=== PATIENT | female | born 1935 | race American Indian/Alaskan Native ===

== ENCOUNTER 2016-06-17 05:05 | Inpatient (IN) | payer OTHER, BC, MEDICARE ==
[~2016-06-17] VITALS: Ht 160 cm; Wt 80.1 kg
--- NOTE | 2016-06-17 05:11 | ED CARDIAC/CP/PALPITATIONS ---
History of Present Illness General Chief Complaint: Chest Pain Stated Complaint: TACHYCARDIA? Source: patient Exam Limitations: no limitations Vital Signs & Intake/Output Vital Signs & Intake/Output Vital Signs Date Time Temp Pulse Resp B/P Pulse O2 O2 Flow FiO2 Ox Delivery Rate 06/17 617 Room Air 06/17 0617 97.6 92 20 182/86 97 Room Air 06/17 0555 97.5 147 18 144/77 98 Room Air 06/17 0551 147 144/77 Allergies Coded Allergies: Sulfa (Sulfonamide Antibiotics) (UNKNOWN 06/17/16) oxycodone (UNKNOWN 06/17/16) pseudoephedrine (UNKNOWN 06/17/16) Triage Nurses Notes Reviewed? yes Onset: Abrupt Duration: hour(s): Timing: single episode today Quality/Severity: moderate Location: central Radiation: no radiation Activities at Onset: "My son just ." Prior Chest Pain/Card Workup: prior history of afib Modifying Factors: Improves With: rest. Associated Symptoms: palpitations HPI: 81 yo woman, h/o afib, presents with grief and tachycardia in the context of hearing the news that her son has in the ED at [facility]. At his bedside, he notes that she feels palpitations, a rapid heart rate, and is dizzy. She notes slight chest pressure, slight shortness of breath. She is otherwise well. Past History Travel History Traveled to [place] past 21 day No Medical History Any Pertinent Medical History? see below for history Cardiovascular: AFIB Pneumonia Vaccine: 01/10/07 Influenza Vaccine: 12/28/08 Surgical History Surgical History: none Psychosocial History Who do you live with Son Services at Home None What is your primary language Sinhala Family History Hx Contributory? No Review of Systems Review of Systems Constitutional: Reports: no symptoms. EENTM: Reports: no symptoms. Respiratory: Reports: no symptoms. Cardiovascular: Reports: no symptoms. GI: Reports: no symptoms. Genitourinary: Reports: no symptoms. Musculoskeletal: Reports: no symptoms. Skin: Reports: no symptoms. Neurological/Psychological: Reports: no symptoms. Hematologic/Endocrine: Reports: no symptoms. Immunologic/Allergic: Reports: no symptoms. All Other Systems: Reviewed and Negative Physical Exam Physical Exam General Appearance: well developed/nourished, mild distress, moderate distress Head: atraumatic, normal appearance Eyes: Bilateral: normal appearance. Ears, Nose, Throat: normal pharynx, normal ENT inspection Neck: normal inspection, supple, full range of motion Respiratory: normal breath sounds, chest non-tender, no respiratory distress Cardiovascular: irregularly irregular, tachycardic Gastrointestinal: normal bowel sounds, soft, non-tender, no organomegaly Rectal: normal rectal tone, heme negative stool Back: normal inspection Extremities: normal inspection Neurologic/Psych: no motor/sensory deficits, awake, alert, oriented x 3 Skin: intact, normal color, warm/dry Core Measures ACS in differential dx? No Severe Sepsis Present: No Septic Shock Present: No Progress Differential Diagnosis: AMI, atrial fibrillation, unstable angina, grief reaction Plan of Care: Orders Procedure Date/time Status Nothing by Mouth 06/17 B Active PARTIAL THROMBOPLASTIN TIME 06/17 1221 Active Patient Data 06/17 07 Active Saline Lock 06/17 06 Active Misc Message 06/17 06 Active ED Holding Orders 06/17 06 Active Admit to inpatient 06/17 0656 Active Vital Signs 06/17 0656 Active Code Status 06/17 06 Active PARTIAL THROMBOPLASTIN TIME 06/17 0517 Complete PROTHROMBIN TIME 06/17 0517 Complete TROPONIN LEVEL 06/17 0509 Complete MAGNESIUM 06/17 0509 Complete COMPREHENSIVE METABOLIC PANEL 06/17 0509 Complete CBC WITHOUT DIFFERENTIAL 06/17 0509 Complete EKG 06/17 0507 Active Laboratory Tests 06/17/16 0524: Anion Gap 12, Estimated GFR 31 L, BUN/Creatinine Ratio 24.4, Glucose 176 H, Calcium 9.8, Magnesium 1.6, Total Bilirubin 0.7, AST 20, ALT 34, Alkaline Phosphatase 110, Troponin I < 0.01, Total Protein 6.9, Albumin 4.1, Globulin 2.8 , Albumin/Globulin Ratio 1.5, PT 10.0, INR 0.95, APTT 31, CBC w Diff NO MAN DIFF REQ, RBC 4.44, MCV 89.0, MCH 29.4, RDW 13.6, MPV 9.4, Gran % 59.4, Lymphocytes % 28.8, Monocytes % 5.9, Eosinophils % 5.2 H, Basophils % 0.7, Absolute Granulocytes 2.8, Absolute Lymphocytes 1.4, Absolute Monocytes 0.3, Absolute Eosinophils 0.2, Absolute Basophils 0, PUBS MCHC 33.0 Diagnostic Imaging: Viewed by Me: Radiology Read. Discussed w/RAD: Radiology Read. CXR Impression: no acute abnormality, no infiltrates, normal size heart, normal mediastinum Initial ED EKG: AFIB, AFIB WITH RVR Comments: PATIENT: AUBREE WHITE PRESENT AGE: 81 PATIENT ACCOUNT NO: [id number] : 35 LOCATION: [facility] ORDERING PHYSICIAN: EFRAÍN VILLANUEVA MD SERVICE DATE: 06/17/16 EXAM TYPE: RAD - XRY-PORTABLE CHEST XRAY EXAMINATION: XR PORTABLE CHEST CLINICAL INFORMATION: Chest pain. COMPARISON: Chest x-ray 08/26/2010 TECHNIQUE: Portable AP portable view of the chest was obtained. 5:45 AM FINDINGS: Lungs are clear. No pulmonary vascular congestion. No pleural effusion or pneumothorax. Heart size is prominent. Surgical clips in right axilla. Compared to prior chest x-ray there is no change IMPRESSION: No acute abnormality of the chest. DICTATED BY: ALEXANDR MARC MD DATE/TIME DICTATED:06/17/16602 O AND M SUPERVISOR:TYLER DATE/TIME TRANSCRIBED:06/17/16602 CONFIDENTIAL, DO NOT COPY WITHOUT APPROPRIATE AUTHORIZATION. <Electronically signed in Other Vendor System> SIGNED BY: ALEXANDR MARC MD 06/17/16607 Departure Departure Disposition: STILL A PATIENT Condition: Stable Clinical Impression Primary Impression: Atrial fibrillation with rapid ventricular response Secondary Impressions: Grief Referrals: DUONG ALCOCER,YAMILE Keller (PCP/Family) Departure Forms: Customer Survey General Discharge Information Admission Note Spoke With: KOLTON ALCOCER,JOSE CRUZ Documentation of Exam: Documentation of any treatments & extenuating circumstances including Concerns Regarding Discharge (functional status, medication knowledge or non-compliance, living conditions, etc.) that warrant an admission rather than observation: PT WITH AFIB WITH RAPID VENTRICULAR RESPONSE... MERITS DILT GTT FOR RATE CONTROL. DISCUSSED WITH DR. LIZARRAGA WHO WILL CONSULT. Critical Care Note Critical Care Note Critical Care Time: 30-74 min
--- NOTE | 2016-06-17 05:37 | NUR ---
PT TO TRIAGE C/O HEART RACING S/P FAMILY MEMBER PATIENT. PT HAS HX AFIB. AFIB 140'S-150'S ON MONITOR. PT DENIES ANY CHEST PAIN OR SOB.
[2016-06-17 05:41] LABS: ABSOLUTE BASOPHIL COUNT 0 /CUMM (0.0-0.2); ABSOLUTE EOSINOPHIL COUNT 0.2 /CUMM (0.0-0.7); ABSOLUTE GRANULOCYTE CT 2.8 /CUMM (1.4-6.5); ABSOLUTE LYMPH COUNT 1.4 /CUMM (1.2-3.4); ABSOLUTE MONOCYTE COUNT 0.3 /CUMM (0.10-0.60); BASOPHIL % 0.7 % (0.0-2.0); EOSINOPHIL % 5.2 % (0-5); GRANULOCYTE % 59.4 % (42.2-75.2); HEMATOCRIT 39.5 % (37-47); MEAN CORPUSCULAR HGB 29.4 PG (27.0-31.0); MEAN PLATELET VOLUME 9.4 FL (7.4-10.4); PLATELET COUNT 110 /CUMM (130-400); RBC DISTRIBUTION WIDTH 13.6 % (11.5-14.5); RED BLOOD CELL CT 4.44 /CUMM (4.20-5.40); WHITE BLOOD CELL COUNT 4.8 /CUMM (4.8-10.8)
[2016-06-17 05:53] LABS: PTT 31 SEC (25-37)
--- NOTE | 2016-06-17 06:08 | RADIOLOGY REPORT ---
EXAMINATION: XR PORTABLE CHEST CLINICAL INFORMATION: Chest pain. COMPARISON: Chest x-ray 08/26/2010 TECHNIQUE: Portable AP portable view of the chest was obtained. 5:45 AM FINDINGS: Lungs are clear. No pulmonary vascular congestion. No pleural effusion or pneumothorax. Heart size is prominent. Surgical clips in right axilla. Compared to prior chest x-ray there is no change IMPRESSION: No acute abnormality of the chest.
--- NOTE | 2016-06-17 06:21 | NUR ---
RENATO CARABALLO, PERFORMED BY THIS RN AND
--- NOTE | 2016-06-17 06:21 | NUR ---
CARDIZEM AND HEPARIN DRIPS INITIATED BY THIS RN AND BALDO WEINBERG.
--- NOTE | 2016-06-17 07:39 | NUR ---
REPORT RECEIVED. PT AWAKE,ALERT,DENIES PAIN,SOB. CARDIZEM DRIP RUNNING AT 10 ML/HR. HEPARIN DRIP RUNNING AT 26 ML/HR. MONITOR SR. 02 SAT 95% RA.
[2016-06-17] MEDS ORDERED: LISINOPRIL20 M1 PO (07:52)
[2016-06-17] MEDS ORDERED: TERAZOSIN HCL1 M1 PO (07:53)
[2016-06-17] MEDS ORDERED: AMLODIPINE BES2.5 M1 PO (07:54)
--- NOTE | 2016-06-17 07:54 | NUR ---
PT TO ROOM 178
[2016-06-17] MEDS ORDERED: PIOGLITAZONE HC30 M1 PO (07:55)
[2016-06-17] MEDS ORDERED: GLUCOTROL XL5 M1 PO (07:56)
[2016-06-17] MEDS ORDERED: TRAMADOL HCL50 M1 PO (07:57)
--- NOTE | 2016-06-17 08:43 | NUR ---
REPORT GIVEN TO CONSUELO BLAND ON [facility].
[2016-06-17] MEDS ORDERED: ASPIRIN81 M4 PO (08:46)
--- NOTE | 2016-06-17 08:56 | NUR ---
RESTRICTED EXTREMITY BRACELET APPLIED TO RT ARM-STATES HX RT BREAST SURGERY.
--- NOTE | 2016-06-17 09:20 | NUR ---
TRANSFERRED TO ROOM 178-REMAIN IN SR.
--- NOTE | 2016-06-17 09:22 | History & Physical ---
DANNIE STOKES 06/17/16 0904: General Information and HPI Exam Limitations: no limitations History of Present Illness: She is 81-year-old woman with past medical history Significant for type 2 diabetes mellitus, hypertension, dyslipidemia, right-sided breast cancer, s/p lumpectomy, node dissection and subsequent chemotherapy, hypothyroidism, thyroid nodule, paroxysmal A. fib not on anticoagulation, intraventricular conduction delay not on antiarrhythmic therapy, history of kidney stones and chronic back pain presented to ER with complaint of heart pounding after she got a news that his son has this morning. At home she checked her blood pressures that was 200 systolic and her heart rate was 104. She was also feeling dizzy. She took lisinopril 40 mg in the morning. Currently she denies any chest pain or discomfort, palpitations, difficulty breathing. She is in grief and crying intermittently. Allergies/Medications Allergies: Coded Allergies: Sulfa (Sulfonamide Antibiotics) (UNKNOWN 06/17/16) oxycodone (UNKNOWN 06/17/16) pseudoephedrine (UNKNOWN 06/17/16) Home Med list Amlodipine Besylate 2.5 MG TABLET 1 TAB PO DAILY HIGH BLOOD PRESSURE ( Reported) Aspirin (Aspirin*) 81 MG TAB.CHEW 1 TAB PO DAILY HEART (Reported) Glipizide (Glucotrol XL) 5 MG TAB.ER.24 1 TAB PO DAILY DIABETES (Reported) Lisinopril 20 MG TABLET 1 TAB PO BID HTN (Reported) Pioglitazone HCl 30 MG TABLET 1 TAB PO DAILY DIABETES (Reported) Terazosin HCl 1 MG CAPSULE 1 CAP PO QPM HEADACHE (Reported) Tramadol HCl 50 MG TABLET 1 TAB PO DAILY PRN BACK PAIN (Reported) Compliance With Home Meds: GOOD Past History Travel History Traveled to [place] past 21 day No Medical History Cardiovascular: AFIB, hypertension, hyperlipidemia Musculoskeletal: chronic back pain Endocrine: diabetes CLINICAL ADMINISTRATIVE COORDINATOR/Reproductive: history of breast cancer status post lumpectomy and chemotherapy Pneumonia Vaccine: 01/10/07 Influenza Vaccine: 12/28/08 Surgical History Surgical History: appendectomy, cholecystectomy, hysterectomy Past Family/Social History Family History Relations & Conditions if any BROTHER (Myocardial infarction at age 48). SISTER (Hemorrhagic stroke). MOTHER (Diabetes mellitus). FATHER (Gastric cancer). Psychosocial History Services at Home: None Smoking Status: Never Smoked ETOH Use: denies use Illicit Drug Use: denies illicit drug use Functional Ability ADLs Independent: dressing, eating, toileting, bathing. Ambulation: independent IADLs Independent: shopping, housework, finances, food prep, telephone, medication admin. Needs Assist: transportation. Review of Systems Review of Systems Constitutional: Reports: see HPI. Exam & Diagnostic Data Last 24 Hrs of Vital Signs/I&O Vital Signs Date Time Temp Pulse Resp B/P Pulse O2 O2 Flow FiO2 Ox Delivery Rate 06/17 0744 96.0 75 18 119/57 95 Room Air 06/17 0618 Room Air 06/17 0617 97.6 92 20 182/86 97 Room Air 06/17 0555 97.5 147 18 144/77 98 Room Air 06/17 0551 147 144/77 Intake & Output 06/17 1600 06/17 0800 06/17 0000 Intake Total 100 Output Total Balance 100 Intake, IV 100 Patient 181 lb Weight Physical Exam General Appearance appears in Grief Skin No Rashes HEENT Mucous Membr. moist/pink Neck Supple Cardiovascular Regular Rate, No Murmurs Lungs Clear to Auscultation Abdomen Normal Bowel Sounds, Soft, No Tenderness Neurological Normal Speech, Strength at 5/5 X4 Ext, Sensation Intact, Cranial Nerves 3-12 NL Extremities No Edema, Normal Pulses Last 24 Hrs of Labs/Don: Laboratory Tests 06/17/16 0524: Anion Gap 12, Estimated GFR 31 L, BUN/Creatinine Ratio 24.4, Glucose 176 H, Calcium 9.8, Magnesium 1.6, Total Bilirubin 0.7, AST 20, ALT 34, Alkaline Phosphatase 110, Troponin I < 0.01, Total Protein 6.9, Albumin 4.1, Globulin 2.8 , Albumin/Globulin Ratio 1.5, TSH Pending, Free T4 Pending, PT 10.0, INR 0.95, APTT 31, CBC w Diff NO MAN DIFF REQ, RBC 4.44, MCV 89.0, MCH 29.4, RDW 13.6, MPV 9.4, Gran % 59.4, Lymphocytes % 28.8, Monocytes % 5.9, Eosinophils % 5.2 H, Basophils % 0.7, Absolute Granulocytes 2.8, Absolute Lymphocytes 1.4, Absolute Monocytes 0.3, Absolute Eosinophils 0.2, Absolute Basophils 0, PUBS MCHC 33.0 Diagnostic Data EKG Results Atrial fibrillation with heart rate [address]-T wave changes CXR Results No acute abnormality of the chest Assessment/Plan Assessment: She is 81-year-old woman with past medical history Significant for type 2 diabetes mellitus, hypertension, dyslipidemia, right-sided breast cancer, s/p lumpectomy, node dissection and subsequent chemotherapy, hypothyroidism, thyroid nodule, paroxysmal A. fib not on anticoagulation, intraventricular conduction delay rather on antiarrhythmic therapy, history of kidney stones and chronic back pain is going to be admitted on telemetry floor for atrial fibrillation with rapid ventricular rate. ED course: When she came to ER her temperature was 97.5, pulse 147, respiratory rate 18, blood pressure 144/77 and oxygen saturation 98% on room air. Pertinent labs are platelet count 110, creatinine 1.6 (baseline), glucose 176, magnesium 1.6. Troponins negative. EKG showed atrial fibrillation with heart rate 129. Chest x-ray did not show any abnormality. In ER she was given Ativan 1 mg IV 1 , aspirin 325 mg by mouth 1, Cardizem 10 mg IV 1 and she was started on Cardizem drip and heparin drip. She was stool guaiac negative. Patient is going to be admitted for chronic paroxysmal Atrial fibrillation with rapid ventricular rate. Patient has history of paroxysmal A. fib. Not on any anticoagulation. Last echocardiogram was done inpatient was in 08/2010 showed stage II diastolic dysfunction with LV ejection fraction >55%. She is diabetic and hypertensive. Her age is 81. CHADS2 score is 4 so she has 8.5% risk of thromboembolic event per year. We will monitor vitals closely. Taper off Cardizem drip according to heartrate. Cardio consult. We will check another set of troponin and EKG after 8 hours. We'll check thyroid functions. Replete magnesium. Will check electrolytes daily and replete accordingly. Echocardiogram. Her platelet count is 110 so we will closely monitor platelet count 5 on IV heparin drip. Will follow further cardiac recommendations. Diabetic diet. Pain management pathway. Patient is on heparin drip. Full code As Ranked By This Provider Problem List: 1. Atrial fibrillation with rapid ventricular response Core Measures/Miscellaneous Acute Coronary Syndrome ACS Diagnosis: No Cerebrovascular Accident CVA/TIA Diagnosis: No Congestive Heart Failure CHF Diagnosis: No Venous Thromboembolism VTE Risk Factors: Acute medical illness, Age > 40 No [facility] VTE prophylaxis d/t: No contraindications No VTE Pharm Prophylaxis d/t: No contraindications VTE Diagnosis: No VTE Type: NONE VTE Confirmed by (Test): NONE Severe Sepsis Severe Sepsis Present: No Septic Shock Septic Shock Present: No Miscellaneous Documentation Attending Case Discussed With: JOSE CRUZ HI MD Primary Care Physician: YAMILE WATTERS MD Patient sees these Specialists Dr. Davida Thacker MD Level of Patient Care: Telemetry Consults Needed: Consulting Specialty: Cardiology JOSE CRUZ HI MD 06/17/16 1158: Attending MD Review Statement Attending Statement Attending MD Statement: examined this patient, discuss w/resident/PA/STRIPPER SHOVEL OPERATOR, agreed w/resident/PA/STRIPPER SHOVEL OPERATOR, discussed with family, reviewed EMR data (avail), discussed with nursing, reviewed images, amended to note Attending Assessment/Plan: 81 y/o F with pmh sig for type 2 diabetes mellitus, hypertension, dyslipidemia, right-sided breast cancer, s/p lumpectomy, node dissection and subsequent chemotherapy, hypothyroidism, thyroid nodule, paroxysmal A. fib not on anticoagulation, intraventricular conduction delay not on antiarrhythmic therapy , history of kidney stones and chronic back pain, who presented to the emergency room after she found that her son has . Patient claims that when she heard the shocking news she started to feel that her heart was pounding. She checked her blood pressure which was in 200s systolic and her heart rate was around 130. She drove herself to the emergency room. In the emergency room she was found to be in rapid atrial fibrillation. Patient claims that her son had some heart issues and he was found in the house but then brought to the emergency room CPR was initiated. Unfortunately he could not be revived. Currently patient denies any further pounding and her heart rate is much better controlled while on Cardizem drip which was started in the emergency room. She was also started on IV heparin. She also mentioned that about 3 weeks ago she had concussion injury. She was fixing something and wanted off the car fell on her head. Since then she has been having symptoms off nausea, vomiting as well as dizziness. She also has been developing headaches and was still complaining of headache when I saw her. Denies any weakness in any part of the body. Denies any speech difficulty or gait disturbances. Vital Signs Date Time Temp Pulse Resp B/P Pulse O2 O2 Flow FiO2 Ox Delivery Rate 06/18 743 96.0 75 18 119/57 95 Room Air 06/17 0618 Room Air 06/17 616 97.6 92 20 182/86 97 Room Air 06/17 0555 97.5 147 18 144/77 98 Room Air 06/17 0551 147 144/77 on exam; aox3, nad, looks very sad and cryful. cv; s1, s2, irregular. resp; mild b/l basal crackles. abd; soft, nt, bs+ ext: 1+ edema Laboratory Tests 06/18 523 Chemistry Sodium (137 - 145 mmol/L) 137 Potassium (3.5 - 5.1 mmol/L) 4.3 Chloride (98 - 107 mmol/L) 103 Carbon Dioxide (22 - 30 mmol/L) 22 Anion Gap (5 - 16) 12 BUN (7 - 17 mg/dL) 39 H Creatinine (0.5 - 1.0 mg/dL) 1.6 H Estimated GFR (>60 ml/min) 31 L BUN/Creatinine Ratio (7 - 25 %) 24.4 Glucose (65 - 99 mg/dL) 176 H Calcium (8.4 - 10.2 mg/dL) 9.8 Magnesium (1.6 - 2.3 mg/dL) 1.6 Total Bilirubin (0.2 - 1.3 mg/dL) 0.7 AST (14 - 36 U/L) 20 ALT (9 - 52 U/L) 34 Alkaline Phosphatase (<127 U/L) 110 Troponin I (< 0.11 ng/ml) < 0.01 Total Protein (6.3 - 8.2 g/dL) 6.9 Albumin (3.5 - 5.0 g/dL) 4.1 Globulin (1.9 - 4.2 gm/dL) 2.8 Albumin/Globulin Ratio (1.1 - 2.2 %) 1.5 TSH (0.270 - 4.200 uIU/mL) 3.220 Free T4 (0.85 - 1.93 ng/dL) 1.36 Coagulation PT (9.4 - 12.5 SEC) 10.0 INR (0.90 - 1.19) 0.95 APTT (25 - 37 SEC) 31 Hematology CBC w Diff NO MAN DIFF REQ WBC (4.8 - 10.8 /CUMM) 4.8 RBC (4.20 - 5.40 /CUMM) 4.44 Hgb (12.0 - 16.0 G/DL) 13.1 Hct (37 - 47 %) 39.5 MCV (81.0 - 99.0 FL) 89.0 MCH (27.0 - 31.0 PG) 29.4 RDW (11.5 - 14.5 %) 13.6 Plt Count (130 - 400 /CUMM) 110 L MPV (7.4 - 10.4 FL) 9.4 Gran % (42.2 - 75.2 %) 59.4 Lymphocytes % (20.5 - 51.1 %) 28.8 Monocytes % (1.7 - 9.3 %) 5.9 Eosinophils % (0 - 5 %) 5.2 H Basophils % (0.0 - 2.0 %) 0.7 Absolute Granulocytes (1.4 - 6.5 /CUMM) 2.8 Absolute Lymphocytes (1.2 - 3.4 /CUMM) 1.4 Absolute Monocytes (0.10 - 0.60 /CUMM) 0.3 Absolute Eosinophils (0.0 - 0.7 /CUMM) 0.2 Absolute Basophils (0.0 - 0.2 /CUMM) 0 PUBS MCHC (33.0 - 37.0 G/DL) 33.0 A/P; 81 y/o F with pmh sig for type 2 diabetes mellitus, hypertension, dyslipidemia, right-sided breast cancer, s/p lumpectomy, node dissection and subsequent chemotherapy, hypothyroidism, thyroid nodule, paroxysmal A. fib not on anticoagulation, intraventricular conduction delay not on antiarrhythmic therapy, history of kidney stones and chronic back pain, admitted with atrial fibrillation with rapid ventricular response. This was likely triggered by the sad news of her son's . Patient is admitted to telemetry. Currently she is started on IV Cardizem and IV heparin in the emergency room which has been continued. IV Cardizem will be tapered according to her heart rate. Once her heart rate is better controlled she will likely be switched to oral Cardizem. Please check echocardiogram. Please check CT of the head to make sure there is no evidence of any bleed secondary to patient providing history of concussion injury and is still having a headache. Also the fact that she has been started on IV heparin. We'll continue the rest of her home medications. For diabetes management we can use sliding scale insulin. Her troponins will be trended. She has thrombocytopenia therefore I would recommend repeating a CBC later today to make sure that heparin has not further dropped the platelet counts. DVT px: IV heparin. Patient is a full code. Discussed with patient's daughter at bedside at length
--- NOTE | 2016-06-17 12:12 | Admission Certification ---
Admission Certification Certification Statement - As attending physician, I certify that at the time of - admission, based on clinical presentation, severity of - symptoms, need for further diagnostic testing and - therapeutic interventions, and risk of adverse outcomes - without in-hospital treatment, in my clinical assessment, - this patient requires an acute hospital stay for a minimum - of two nights or longer. I have also considered psychsocial - factors such as support system, advanced age, financial - issues, cognitive issues, and failed out-patient treatments, - past re-admission history, safety of patient, and lack of - compliance as applicable. Specific rationale supporting this admission is: Patient admitted with rapid atrial fibrillation. Needs medications to control the heart rate as well as cardiology evaluation.
--- NOTE | 2016-06-17 14:26 | CT SCAN REPORT ---
EXAMINATION: CT HEAD WITHOUT CONTRAST CLINICAL INFORMATION: Headache, status post fall. Patient is an anticoagulation. COMPARISON: None TECHNIQUE: Contiguous axial imaging was performed from the skull base to vertex without intravenous administration of contrast. DLP: 529.16 mGy-cm FINDINGS: There is no evidence of acute intracranial hemorrhage or territorial infarction. No abnormal mass effect or midline shift is seen. Dempsey to white matter differentiation is well preserved. No extra-axial fluid collections are identified. The ventricles are normal in size. There is no abnormal attenuation within the brain parenchyma. A cluster of sub-5 mm calcifications are noted within the folia of right cerebellar hemisphere, of uncertain etiology, of doubtful clinical significance. The osseous structures and soft tissues are normal. The mastoid air cells and visualized portions of the paranasal sinuses are well aerated. IMPRESSION: No acute intracranial pathology. Specifically, no acute intracranial hemorrhage is present.
[2016-06-17 14:36] LABS: ABSOLUTE BASOPHIL COUNT 0 /CUMM (0.0-0.2); ABSOLUTE EOSINOPHIL COUNT 0.2 /CUMM (0.0-0.7); ABSOLUTE GRANULOCYTE CT 3.2 /CUMM (1.4-6.5); ABSOLUTE LYMPH COUNT 1.2 /CUMM (1.2-3.4); ABSOLUTE MONOCYTE COUNT 0.3 /CUMM (0.10-0.60); BASOPHIL % 0.3 % (0.0-2.0); EOSINOPHIL % 4.2 % (0-5); GRANULOCYTE % 64.8 % (42.2-75.2); HEMATOCRIT 37.1 % (37-47); MEAN CORPUSCULAR HGB 29.4 PG (27.0-31.0); MEAN CORPUSCULAR HGB CONC 33.2 G/DL (33.0-37.0); MEAN CORPUSCULAR VOLUME 88.6 FL (81.0-99.0); MEAN PLATELET VOLUME 9.9 FL (7.4-10.4); PLATELET COUNT 121 /CUMM (130-400); RBC DISTRIBUTION WIDTH 13.4 % (11.5-14.5); RED BLOOD CELL CT 4.18 /CUMM (4.20-5.40); WHITE BLOOD CELL COUNT 4.9 /CUMM (4.8-10.8)
[2016-06-17 14:46] LABS: PTT 96 SEC (25-37)
[2016-06-17 16:20] VITALS: BP 108/54
--- NOTE | 2016-06-17 19:37 | Cons- Cardiology ---
General Information and HPI Consulting Request Date of Consult: 06/17/16 Requested By: JOSE CRUZ HI MD Reason for Consult: Atrial fibrillation with rapid ventricular response. Source of Information: patient, old records Exam Limitations: no limitations History of Present Illness: Mrs. Radha Fatima is an 81-year-old female with a history of diabetes mellitus, hypertension, dyslipidemia, breast carcinoma (status post right lumpectomy and subsequent chemotherapy), previous chest pain syndrome with negative evaluation in the past, intraventricular conduction delay (IVCD), paroxysmal atrial fibrillation/flutter previously on propafenone/diltiazem but had to be stopped secondary to marked bradycardia who presented after learning that her son succumbed to sudden cardiac . Her last echocardiogram was performed on 08/28/2010 and revealed a normal-sized left ventricle with mild concentric left ventricular hypertrophy, no regional wall motion abnormalities, and a normal ejection fraction estimated at greater than 55%, normal right ventricular size and function, normal atrial size, some age-related valvular changes, no pericardial effusion, and a normal size aortic root. The Doppler portion of the study revealed no evidence of hemodynamically significant aortic stenosis, mild to moderate aortic, mild mitral, mild tricuspid regurgitation, mild pulmonary hypertension (estimated PA systolic pressure 39 mmHg) and a pseudo-normal left ventricular inflow pattern consistent with stage 2 diastolic dysfunction. Her last imaging stress test was performed on 05/15/2012 and revealed no evidence of reversible ischemia. Allergies/Medications Allergies: Coded Allergies: Sulfa (Sulfonamide Antibiotics) (UNKNOWN 06/17/16) oxycodone (UNKNOWN 06/17/16) pseudoephedrine (UNKNOWN 06/17/16) Home Med List: Amlodipine Besylate 2.5 MG TABLET 1 TAB PO DAILY HIGH BLOOD PRESSURE ( Reported) Aspirin (Aspirin*) 81 MG TAB.CHEW 1 TAB PO DAILY HEART (Reported) Glipizide (Glucotrol XL) 5 MG TAB.ER.24 1 TAB PO DAILY DIABETES (Reported) Lisinopril 20 MG TABLET 1 TAB PO BID HTN (Reported) Pioglitazone HCl 30 MG TABLET 1 TAB PO DAILY DIABETES (Reported) Terazosin HCl 1 MG CAPSULE 1 CAP PO QPM HEADACHE (Reported) Tramadol HCl 50 MG TABLET 1 TAB PO DAILY PRN BACK PAIN (Reported) Review of Systems Review of Systems: A 14 point system review was obtained and was noncontributory, other than as above. 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 SISTER (Hemorrhagic stroke). MOTHER (Diabetes mellitus). FATHER (Gastric cancer). Psychosocial History Where Do You Live? Home Services at Home: None Smoking Status: Never Smoked ETOH Use: denies use Illicit Drug Use: denies illicit drug use Functional Ability ADLs Independent: dressing, eating, toileting, bathing. Ambulation: independent IADLs Independent: shopping, housework, finances, food prep, telephone, medication admin. Needs Assist: transportation. Exam & Diagnostic Data Vital Signs and I&O Vital Signs Date Time Temp Pulse Resp B/P Pulse O2 O2 Flow FiO2 Ox Delivery Rate 06/17 1620 98.2 57 20 108/54 95 Room Air / 0744 96.0 75 18 119/57 95 Room Air 06/17 0618 Room Air / 0617 97.6 92 20 182/86 97 Room Air 06/17 0555 97.5 147 18 144/77 98 Room Air /08 0551 147 144/77 Intake & Output 06/17 1600 08 0800 /08 0000 06/16 1600 06/16 0800 06/16 0000 Intake Total 848 100 Output Total Balance 848 100 Intake, IV 248 100 Intake, Oral 600 Patient 181 lb 181 lb Weight Physical Exam: Well-developed, overweight elderly female in no acute distress. Vital signs: See above. HEENT: Normocephalic, atraumatic, EOMI, 70 dry mucous membranes. Neck: No JVD, no bruits. Lungs: Decreased breath sounds bilaterally otherwise clear. Heart: S1, S2 with a grade 1-2/6 systolic murmur. No gallop or rub appreciated. Extremities: No edema. Assessment/Plan Assessment/Plan Mrs. marinelli is an elderly female with a history of DM, HTN, HLD, breast CA s/p lumpectomy/chemotherapy, previous CP syndrome with negative evaluation in the past, IVCD, PAF previously on propafenone/diltiazem that had to be d/c'd secondary to marked bradycardia who presented after learning that her son who had an AICD succumbed to sudden cardiac . Fortunately, she converted back to sinus rhythm in the ED and has maintained sinus rhythm since time with heart rates varying between 56-78 bpm with occasional VPCs. Previously, she had always been aware of being in atrial fibrillation/flutter and we had employed the "pill in the pocket" technique for getting her back to sinus rhythm, however, she became profoundly bradycardic on the combination propoxyphene/diltiazem, as mentioned, and these had to be discontinued. Fortunately, she has thus far tolerated the IV diltiazem, however, given her conduction disease I would like to discontinue this. Given her age, she is not a good candidate for atrial fibrillation ablation so our options for treating her PAF are limited. Recommendations: * Continue on telemetry, follow-up electrocardiogram in a.m., follow-up third set of troponins as her second set was on the rise * Continue on long-term anticoagulation and would recommend starting her warfarin anticoagulation. * Would schedule her for an echocardiogram to reassess her left ventricular systolic function, atrial size, right ventricular function, estimated PA pressure, valvular regurgitation, etc. * Continue on her outpatient cardiac regimen. * Check magnesium and glycosylated hemoglobin A1c. * DVT prophylaxis being addressed by anticoagulation for her atrial fibrillation. Further recommendations will follow, Thank you. Consult Acknowledgment - Thank you for your consult request.
[2016-06-17 22:48] LABS: PTT > 120 SEC (25-37)
[2016-06-17 23:31] VITALS: BP 132/64
[2016-06-18 08:46] LABS: PTT 96 SEC (25-37)
[2016-06-18 08:48] LABS: ABSOLUTE BASOPHIL COUNT 0 /CUMM (0.0-0.2); ABSOLUTE EOSINOPHIL COUNT 0.3 /CUMM (0.0-0.7); ABSOLUTE GRANULOCYTE CT 1.4 /CUMM (1.4-6.5); ABSOLUTE LYMPH COUNT 1.8 /CUMM (1.2-3.4); ABSOLUTE MONOCYTE COUNT 0.2 /CUMM (0.10-0.60); BASOPHIL % 0.8 % (0.0-2.0); EOSINOPHIL % 8.5 % (0-5); GRANULOCYTE % 37.5 % (42.2-75.2); HEMATOCRIT 36.9 % (37-47); MEAN CORPUSCULAR HGB 29.7 PG (27.0-31.0); MEAN CORPUSCULAR HGB CONC 33.1 G/DL (33.0-37.0); MEAN CORPUSCULAR VOLUME 89.7 FL (81.0-99.0); MEAN PLATELET VOLUME 9.9 FL (7.4-10.4); PLATELET COUNT 116 /CUMM (130-400); RBC DISTRIBUTION WIDTH 13.7 % (11.5-14.5); RED BLOOD CELL CT 4.12 /CUMM (4.20-5.40); WHITE BLOOD CELL COUNT 3.8 /CUMM (4.8-10.8)
[2016-06-18 09:13] VITALS: BP 124/52
--- NOTE | 2016-06-18 09:52 | PN- Housestaff ---
Subjective Follow-up For: Paroxysmal atrial fibrillation Complaints: back pain Tele-Events Since Last Visit: Normal sinus rhythm with heart rate between 56-67, no any overnight events Subjective: Patient is seen, he was complaining of pain in the back. Denies of any chest pain and shortness of breath Review of Systems Constitutional: Denies: no symptoms. Cardiovascular: Denies: chest pain, palpitations. Respiratory: Denies: short of breath. Gastrointestinal: Denies: no symptoms. Musculoskeletal: Reports: back pain. Objective Last 24 Hrs of Vital Signs/I&O Vital Signs Date Time Temp Pulse Resp B/P Pulse O2 O2 Flow FiO2 Ox Delivery Rate 06/186 70 132/64 06/18 1625 97.8 67 20 118/70 94 Room Air 06/18 1007 124/52 06/18 1007 124/52 06/18 0913 98.2 66 18 124/52 96 Room Air 06/17 2331 98.4 62 12 132/64 98 Room Air Intake & Output 06/18 1600 06/18 0800 06/18 0000 Intake Total 260 1108 Output Total 300 600 Balance -40 508 Intake, IV 160 208 Intake, Oral 100 900 Output, Urine 300 600 Physical Exam General Appearance: Alert, Oriented X3, Cooperative, No Acute Distress Cardiovascular: Normal S1, Normal S2 Lungs: Clear to Auscultation, Normal Air Movement Extremities: No Clubbing, No Cyanosis, No Edema Assessment/Plan Assessment: Patient is 81-year-old female with significant past medical history diabetes, hypertension, hyperlipidemia, breast cancer status post lumpectomy/chemotherapy, chest pain syndrome with negative evaluation, intraventricular cardiac defibrillator, paroxysmal atrial fibrillation, presented with history of chest pain and palpitation. After hearing that her son had sudden cardiac . Plan - Paroxysmal atrial fibrillation - * We will continue telemetry monitoring * Discussed with Dr. Higuera, we will start patient on low-dose Eliquis 2.5 milligrams PO BID * Stop the heparin after giving first dose of Eliquis * We will watch for bleeding * Possible discharge tomorrow Hypertension - * We'll continue tablet, lisinopril, amlodipine, doxazosin. Back pain - * Pain medication according to the pain scale Type 2 diabetes mellitus - * Blood sugar management 3 times a day/at bedtime * NovoLog according to sliding scale Diet -heart healthy diet DVT prophylaxis-ALP S/Eliquis Code-full code Problem List: 1. Atrial fibrillation with rapid ventricular response 2. Diabetes mellitus type 2 3. Benign essential hypertension Pain Ratin Pain Location: Back Pain Goal: Remain pain free Pain Plan: Pain medication according to the pain scale Tomorrow's Labs & Rationales: BEP-to follow-up with creatinine DVT/Prophylaxis: mechanical, pharmacological Consulting Request: Consulting Specialty: Cardiology
[2016-06-18 10:36] LABS: PT 10.8 SEC (9.4-12.5)
--- NOTE | 2016-06-18 12:30 | PN- Att Addend ---
Attending Addendum Attending Brief Note Patient seen and examined, feels okay. She is now in sinus rhythm and heart rate well controlled. Cardizem drip was discontinued. She is complaining of left lateral back pain. Vital Signs Date Time Temp Pulse Resp B/P Pulse O2 O2 Flow FiO2 Ox Delivery Rate 06/18 1006 124/52 06/18 1007 12452 06/18 0913 98.2 66 18 124/52 96 Room Air 06/17 2331 98.4 62 12 132/64 98 Room Air 06/17 1620 98.2 57 20 108/54 95 Room Air on exam; aox3, nad. cv; s1,s2, rrr resp; clear abd; soft, nt, bs+ ext; trace edema. Laboratory Tests 06/1855 2044 Chemistry Sodium (137 - 145 mmol/L) 137 Potassium (3.5 - 5.1 mmol/L) 4.3 Chloride (98 - 107 mmol/L) 108 H Carbon Dioxide (22 - 30 mmol/L) 23 Anion Gap (5 - 16) 6 BUN (7 - 17 mg/dL) 43 H Creatinine (0.5 - 1.0 mg/dL) 1.6 H Estimated GFR (>60 ml/min) 31 L BUN/Creatinine Ratio (7 - 25 %) 26.9 H Magnesium (1.6 - 2.3 mg/dL) 2.0 Troponin I (< 0.11 ng/ml) 0.03 Coagulation PT (9.4 - 12.5 SEC) 10.8 INR (0.90 - 1.19) 1.03 APTT (25 - 37 SEC) 96 H > 120 *H Hematology CBC w Diff NO MAN DIFF REQ WBC (4.8 - 10.8 /CUMM) 3.8 L RBC (4.20 - 5.40 /CUMM) 4.12 L Hgb (12.0 - 16.0 G/DL) 12.2 Hct (37 - 47 %) 36.9 L MCV (81.0 - 99.0 FL) 89.7 MCH (27.0 - 31.0 PG) 29.7 RDW (11.5 - 14.5 %) 13.7 Plt Count (130 - 400 /CUMM) 116 L MPV (7.4 - 10.4 FL) 9.9 Gran % (42.2 - 75.2 %) 37.5 L Lymphocytes % (20.5 - 51.1 %) 48.1 Monocytes % (1.7 - 9.3 %) 5.1 Eosinophils % (0 - 5 %) 8.5 H Basophils % (0.0 - 2.0 %) 0.8 Absolute Granulocytes (1.4 - 6.5 /CUMM) 1.4 Absolute Lymphocytes (1.2 - 3.4 /CUMM) 1.8 Absolute Monocytes (0.10 - 0.60 /CUMM) 0.2 Absolute Eosinophils (0.0 - 0.7 /CUMM) 0.3 Absolute Basophils (0.0 - 0.2 /CUMM) 0 PUBS MCHC (33.0 - 37.0 G/DL) 33.1 A/P; 81 y/o F with pmh sig for type 2 diabetes mellitus, hypertension, dyslipidemia, right-sided breast cancer, s/p lumpectomy, node dissection and subsequent chemotherapy, hypothyroidism, thyroid nodule, paroxysmal A. fib not on anticoagulation, intraventricular conduction delay not on antiarrhythmic therapy, history of kidney stones and chronic back pain, admitted with atrial fibrillation with rapid ventricular response. Now converted to sinus rhythm. Currently not on any Cardizem and amlodipine has been resumed. Patient was kept on heparin drip. Cardiology recommending anticoagulation with Coumadin. Please discuss with burnt lime drawer is one of the NOVEL anticoagulants will be an option. If that is the case then heparin bridging will not be needed but if patient needs to stay on Coumadin then she will need to be bridged with heparin. Pain management with morphine. DVT prophylaxis: Heparin drip. Encourage ambulation
[2016-06-18 16:25] VITALS: BP 118/70
[2016-06-18 17:53] LABS: PT 10.7 SEC (9.4-12.5); PTT 83 SEC (25-37)
--- NOTE | 2016-06-18 21:35 | PN- Cardiology ---
Subjective Subjective: Complaining of intermittent back pain medial to her that has been relieved with morphine sulfate. On telemetry has remained in sinus rhythm. Objective Vital Signs and I&Os BP 124/52 P 65 (irregularly, irregular) R 16 T 98.2 Assessment/Plan Assessment/Plan Mrs. marinelli is an elderly female with a history of DM, HTN, HLD, breast CA s/p lumpectomy/chemotherapy, previous CP syndrome with negative evaluation in the past, IVCD, PAF previously on propafenone/diltiazem that had to be d/c'd secondary to marked bradycardia who presented after learning that her son who had an AICD succumbed to sudden cardiac . Fortunately, she converted back to sinus rhythm in the ED and has maintained sinus rhythm. She is now on low-dose Eliquis (apixaban) at 2.5 mg twice daily and will be maintained on this. Her back pain is likely musculoskeletal, as it was there all day yesterday, her troponins were negative and her electrocardiograms revealed no significant ST-T wave abnormalities. Would continue to increase activity in anticipation of discharge tomorrow. Continue telemetry? Yes
[2016-06-18 22:00] VITALS: BP 132/64
--- NOTE | 2016-06-19 07:23 | PN- Housestaff ---
JAZMÍN ALCOCER,ADDIE 06/19/16 0723: Subjective Follow-up For: Paroxysmal atrial fibrillation Chest pain Tele-Events Since Last Visit: Sinus rhythm, sinus marco 58-70bpm Subjective: I saw and examined the patient today morning She is very sad, sitting in the bed. Offers no complaints, able to walk around. Review of Systems Constitutional: Reports: see HPI. Comments: ROS negative except the above. Objective Last 24 Hrs of Vital Signs/I&O Vital Signs Date Time Temp Pulse Resp B/P Pulse O2 O2 Flow FiO2 Ox Delivery Rate 06/18 2199 97.4 70 18 132/64 96 Room Air 06/18 2056 70 132/64 06/18 1625 97.8 67 20 118/70 94 Room Air 06/18 1007 124/52 06/18 1007 124/52 06/18 0913 98.2 66 18 124/52 96 Room Air Intake & Output 06/19 0800 06/19 0000 06/18 1600 Intake Total 350 350 Output Total Balance 350 350 Intake, IV 0 0 Intake, Oral 350 350 Number 0 0 Bowel Movements Patient 80.059 kg Weight Physical Exam General Appearance: Alert, Oriented X3, Cooperative Skin: No Rashes, No Breakdown HEENT: Atraumatic, PERRLA, EOMI Neck: Supple Cardiovascular: Normal S1, Normal S2, No Murmurs Lungs: Clear to Auscultation, Normal Air Movement Abdomen: Normal Bowel Sounds, Soft, No Tenderness Neurological: Normal Gait, Normal Speech, Strength at 5/5 X4 Ext, Normal Tone Extremities: No Clubbing, No Cyanosis, scant edema Vascular: Normal Pulses, Pulses Symmetrical Current Medications: Current Medications Sig/Brina Start time Last Medication Dose Route Stop Time Status Admin Acetaminophen 1,000 MG Q6P PRN 06/17 1300 AC IV Acetaminophen 650 MG Q6P PRN 06/17 0900 AC 06/17 PO 1150 Amlodipine Besylate 2.5 MG DAILY 06/18 1000 AC 06/19 PO 1035 Apixaban 2.5 MG BID 06/180 AC 06/19 PO 1035 Doxazosin Mesylate 1 MG QPM 06/17 2200 AC 06/18 PO 2056 Heparin Sodium 25,000 UNIT Q24H 06/17 0530 DC 06/18 (Porcine) IV 0914 Sodium Chloride 500 ML Insulin Aspart 0 TIDAC 06/17 1700 AC SC Lisinopril 20 MG BID 06/18 1000 AC 06/19 PO 1035 Morphine Sulfate 2 MG Q6P PRN 06/17 1300 AC 06/18 IV 0651 Nystatin 1 MARIBEL BID 06/18 1457 06/19 TOP 1036 Last 24 Hrs of Lab/Don Results Last 24 Hrs of Labs/Mics: Laboratory Tests 06/18/16 1655: PT 10.7, INR 1.02, APTT 83 H Lines/Diet/Fluids Lines: peripheral lines Assessment/Plan Assessment: Patient is 81-year-old female with significant past medical history diabetes, hypertension, hyperlipidemia, breast cancer status post lumpectomy/chemotherapy, chest pain syndrome with negative evaluation, intraventricular cardiac defibrillator, paroxysmal atrial fibrillation, presented with history of chest pain and palpitation. After hearing that her son had sudden cardiac . Plan - Paroxysmal atrial fibrillation - Intially started on IV heparin and IV cardizem -- once converted to sinus discontinued drips. Started on eliquis 2.5mg BID yesterday. Not placed on any rate control medication as she is in sinus rhythm and sinus bradycardia. Need to follow up with as outpatient. Stable for discharge today. Hypertension - * We'll continue tablet, lisinopril, amlodipine, doxazosin. Back pain - * Morphine sulfate Q6PRN IV, acetaminophen 650mg PRN. Type 2 diabetes mellitus - * Blood sugar management 3 times a day/at bedtime * NovoLog according to sliding scale Diet -heart healthy diet DVT prophylaxis-ALP S/Eliquis Code-full code Problem List: 1. Diabetes mellitus type 2 2. Dyslipidemia 3. Hypothyroidism 4. Grief 5. Atrial fibrillation with rapid ventricular response Pain Ratin Pain Location: n/a Pain Goal: Pain 4 or less Pain Plan: tylneol prn Tomorrow's Labs & Rationales: none Consulting Request: Consulting Specialty: Cardiology REENA AGUIRRE MD 06/19/16 1218: Attending MD Review Statement Attending Statement Attending MD Statement: examined this patient, discuss w/resident/PA/STABLE MANAGER, agreed w/resident/PA/STABLE MANAGER, reviewed EMR data (avail) Attending Assessment/Plan: 81F PMH HTN, T2DM, paroxysmal atrial fibrillation admitted with rapid atrial fibrillation with RVR following stresssful event on day of admission. Had been started on Cardizem and heparin drips, now converted to NSR and borderline bradycardic, not on any AV-maida blocking agents. Patient has no complaints and feels well. She reports stepping on something sharp the day of admission adn cutting her foot. On examination her foot has a healing 1cm wound that is dry, clean, and no signs of infection. Her cardiac and lung exams are normal. 1. Rapid atrial fibrillation with RVR 2. CKD stage 3a Plan - Stable for discharge home - Continue Eliquis 2.5mg BID - No rate control medications as patient is borderline sinus bradycardic at this time - Continue home medications - Follow up with cardiology as outpatient
[2016-06-19 08:00] VITALS: BP 140/70
[2016-06-19] MEDS ORDERED: ELIQUIS2.5 M1 PO (09:13)
--- NOTE | 2016-06-19 09:17 | Patient Discharge Instructions ---
Discharge Instructions General Discharge Information You were seen/treated for: Atrial Fibrillation with RVR Special Instructions: Please follow up with your PCP in a week Please follow up with in a week Please follow up regariding your new medication - blood thinner eliquis. Diet Continue normal diet: No Recommended Diet: Heart Healthy Activity Full Activity/No Limits: No Activity Self Limited: Yes Acute Coronary Syndrome Inclusion Criteria At DC or during hospital stay patient has or had the following: ACS DIAGNOSIS No Discharge Core Measures Meds if any: Prescribed or Continued at Discharge Meds if any: NOT Prescribed or Continued at Discharge Congestive Heart Failure Inclusion Criteria At DC or during hospital stay patient has or had the following: CHF DIAGNOSIS No Discharge Core Measures Meds if any: Prescribed or Continued at Discharge Meds if any: NOT Prescribed or Continued at Discharge Cerebrovascular accident Inclusion Criteria At DC or during hospital stay patient has or had the following: CVA/TIA Diagnosis No Discharge Core Measures Meds if any: Prescribed or Continued at Discharge Meds if any: NOT Prescribed or Continued at Discharge Venous thromboembolism Inclusion Criteria VTE Diagnosis No VTE Type NONE VTE Confirmed by (Test) NONE Discharge Core Measures - Per Current guidelines, there needs to be overlap - treatment for the first 5 days of Warfarin therapy. - If discharged on Warfarin prior to 5 days of - overlap therapy, the patient will need to be - assessed for post discharge needs including - *Post discharge parental anticoagulation - *Warfarin and/or parental anticoagulation education - *Follow up date to check INR post discharge At least 5 days overlap therapy as Inpatient No Meds if any: Prescribed or Continued at Discharge Note: Overlap Therapy is Warfarin and Anticoagulant Meds if any: NOT Prescribed or Continued at Discharge
[2016-06-19 10:35] VITALS: BP 140/70
--- NOTE | 2016-06-19 13:10 | ECHOCARDIOGRAM REPORT ---
AUBREE WHITE Age: 81 : 1935 Gender: F Exam Date: 06/18/2016 13:10 Exam Location: 1 [address] Ht (in): 63 Wt (lb): 180 BSA: 1.94 BP: 132 / 64 Ordering Physician: DANNIE STOKES MD Referring Physician: Ishan Higuera MD Technologist: Patience Weller [facility] Room Number: 178 Indications: AFIB/FLUTTER Rhythm: Sinus Technical Quality: Fair FINDINGS Left Ventricle Left ventricular cavity size at the upper limits of normal. Mild concentric left ventricular hypertrophy. No obvious regional wall motion abnormalities. Normal left ventricular ejection fraction visually estimated at 65%. Mildly increased left ventricular outflow tract velocity (1.5 m/s). "pseudonormal" filling pattern of the left ventricle for age (stage 2 diastolic dysfunction). Right Ventricle Normal right ventricular size and function. Right Atrium Normal right atrial size. Left Atrium Mild left atrial dilatation. Mitral Valve Mild mitral annular calcification. Mitral valve mildly thickened. Mild mitral regurgitation. Aortic Valve Trileaflet aortic valve. Mild aortic stenosis. Mild aortic regurgitation. Tricuspid Valve Structurally normal tricuspid valve. Trace tricuspid regurgitation. No evidence of pulmonary hypertension. Right ventricular systolic pressure estimated to be within the normal range at 11mmHg. Pulmonic Valve Pulmonic valve not well visualized, grossly normal. No pulmonic regurgitation. Pericardium No pericardial effusion. Great Vessels Normal size aortic root. Mildly dilated inferior vena cava. CONCLUSIONS Left ventricular cavity size at the upper limits of normal. Mild concentric left ventricular hypertrophy. No obvious regional wall motion abnormalities. Normal left ventricular ejection fraction visually estimated at 65%. Mildly increased left ventricular outflow tract velocity (1.5 m/s). "pseudonormal" filling pattern of the left ventricle for age (stage 2 diastolic dysfunction). Normal right ventricular size and function. Normal right atrial size. Mild left atrial dilatation. Mild mitral regurgitation. Mild aortic stenosis. Mild aortic regurgitation. Trace tricuspid regurgitation. No evidence of pulmonary hypertension. Mildly dilated inferior vena cava. Ishan Higuera M.D. (Electronically Signed) Final Date: 19 June 2016 13:10 MEASUREMENTS (Male / Female) Normal Values 2D ECHO LV Diastolic Diameter PLAX 5.3 cm 4.2 - 5.9 / 3.9 - 5.3 cm LV Systolic Diameter PLAX 3.4 cm 2.1 - 4.0 cm LV Fractional Shortening PLAX 35.8 % 25 - 46 % LV Ejection Fraction 2D Teich 65.0 % IVS Diastolic Thickness 1.1 cm LVPW Diastolic Thickness 1.0 cm LV Relative Wall Thickness 0.4 RV Internal Dim ED PLAX 2.8 cm 1.9 - 3.8 cm LVOT Diameter 1.8 cm Aortic Root Diameter 2.7 cm LA Systolic Diameter LX 4.1 cm 3.0 - 4.0 / 2.7 - 3.8 cm LA Volume 36.0 cm 18 - 58 / 22 - 52 cm Ascending Aorta Diameter 3.2 cm DOPPLER AV Peak Velocity 214.0 cm/s AV Peak Gradient 18.3 mmHg AV Mean Velocity 141.0 cm/s AV Mean Gradient 9.0 mmHg AV Velocity Time Integral 46.4 cm AI Deceleration [place] 267.0 cm/s AI Peak Velocity 428.0 cm/s AI Pressure Half Time 470.0 ms AI Peak Gradient 73.3 mmHg LVOT Peak Velocity 154.0 cm/s LVOT Peak Gradient 9.5 mmHg LVOT Mean Velocity 107.0 cm/s LVOT Mean Gradient 5.0 mmHg LVOT Velocity Time Integral 34.6 cm LVOT Stroke Volume 88.0 cm AV Area Cont Eq vti 1.9 cm AV Area Cont Eq pk 1.8 cm MV Peak Velocity 110.0 cm/s MV Peak Gradient 4.8 mmHg MV Mean Velocity 60.6 cm/s MV Mean Gradient 2.0 mmHg Mitral E Point Velocity 96.3 cm/s Mitral A Point Velocity 74.0 cm/s Mitral E to A Ratio 1.3 MV PHT Velocity 114.0 cm/s MV Deceleration [place] 371.0 cm/s MV Pressure Half Time 92.2 ms MV Area PHT 2.4 cm MV Deceleration Time 271.0 ms TR Peak Velocity 250.0 cm/s TR Peak Gradient 25.0 mmHg Right Atrial Pressure 5.0 mmHg Pulmonary Artery Systolic Pressu 30.0 mmHg Right Ventricular Systolic Press 30.0 mmHg PV Peak Velocity 85.9 cm/s PV Peak Gradient 3.0 mmHg PV Mean Velocity 62.1 cm/s PV Mean Gradient 2.0 mmHg PV Velocity Time Integral 24.2 cm LV E' Lateral Velocity 8.2 cm/s Mitral E to LV E' Lateral Ratio 11.8 LV E' Septal Velocity 6.0 cm/s Mitral E to LV E' Septal Ratio 15.9
--- NOTE | 2016-06-19 13:42 | Discharge Summary ---
Visit Information Visit Dates Admission Date: 06/17/16 Discharge Date: 06/19/16 Hospital Course Course Attending Physician: REENA AGUIRRE MD Primary Care Physician: DUONG ALCOCER,YAMILE Keller Consulting Request: Consulting Specialty: Cardiology Consulting Physician: Reason for Consult: AF with RVR Hospital Course: Patient is 81-year-old female with significant past medical history diabetes, hypertension, hyperlipidemia, breast cancer status post lumpectomy/chemotherapy, chest pain syndrome with negative evaluation, intraventricular cardiac defibrillator, paroxysmal atrial fibrillation, presented with history of chest pain and palpitation after hearing that her son had sudden cardiac . Plan - Paroxysmal atrial fibrillation - Intially started on IV heparin and IV cardizem -- once converted to sinus discontinued drips. Started on eliquis 2.5mg BID. Not placed on any rate control medication as she is in sinus rhythm and sinus bradycardia. Need to follow up with as outpatient. Hypertension - We continued her home medications lisinopril, amlodipine, doxazosin and her BP is adequately controlled. Back pain - * Morphine sulfate Q6PRN IV, acetaminophen 650mg PRN. Type 2 diabetes mellitus Managed with Insulin sliding scale, restarted on home medication at discharge. (pioglitazone and glipizide) Diet -heart healthy diet DVT prophylaxis-ALP S/Eliquis Code-full code Complications: None Allergies: Coded Allergies: Sulfa (Sulfonamide Antibiotics) (UNKNOWN 06/17/16) oxycodone (UNKNOWN 06/17/16) pseudoephedrine (UNKNOWN 06/17/16) Significant Procedures: ECHOCARDIOGRAM CONCLUSIONS Left ventricular cavity size at the upper limits of normal. Mild concentric left ventricular hypertrophy. No obvious regional wall motion abnormalities. Normal left ventricular ejection fraction visually estimated at 65%. Mildly increased left ventricular outflow tract velocity (1.5 m/s). "pseudonormal" filling pattern of the left ventricle for age (stage 2 diastolic dysfunction). Normal right ventricular size and function. Normal right atrial size. Mild left atrial dilatation. Mild mitral regurgitation. Mild aortic stenosis. Mild aortic regurgitation. Trace tricuspid regurgitation. No evidence of pulmonary hypertension. Mildly dilated inferior vena cava. Richard Higuera M.D. (Electronically Signed) Final Date: 19 June 2016 13:10 CT Head on june 17 No acute intracranial pathology. Specifically, no acute intracranial hemorrhage is present. CXR on june 17 No acute abnormality of the chest. Disposition Summary Disposition Principal Diagnosis: Atrial Fibrillation with RVR Additional Diagnosis: Hypothyroidism Hypertension Acute coronary syndrome - ruled out Discharge Disposition: home or self care Discharge Instructions General Discharge Information Code Status: Full Code Patient's Diet: Heart healthy diet Patient's Activity: Activity as tolerated Follow-Up Instructions/Appts: Please follow up with your PCP in a week Please follow up with in a week. Medications at Discharge Discharge Medications: Continue taking these medications: Lisinopril (Lisinopril) 20 MG TABLET 1 Tablet ORAL TWICE DAILY Qty = 60 Comments: GIVEN 06/19/16 @ 1035 Terazosin HCl (Terazosin HCl) 1 MG CAPSULE 1 Capsule ORAL Every night Qty = 30 Comments: GIVEN SUBSTITUTE 06/18/16 @ 9PM Amlodipine Besylate (Amlodipine Besylate) 2.5 MG TABLET 1 Tablet ORAL DAILY Qty = 30 Comments: GIVEN 06/19/16 @ 1035 Pioglitazone HCl (Pioglitazone HCl) 30 MG TABLET 1 Tablet ORAL DAILY Qty = 30 Comments: NOT GIVEN Glipizide (Glucotrol XL) 5 MG TAB.ER.24 1 Tablet ORAL DAILY Qty = 30 Comments: NOT GIVEN Tramadol HCl (Tramadol HCl) 50 MG TABLET 1 Tablet ORAL DAILY as needed for BACK PAIN Qty = 120 Comments: NOT GIVEN Aspirin (Aspirin*) 81 MG TAB.CHEW 1 Tablet ORAL DAILY Comments: GIVEN 06/17/16 @ 0550 Start taking the following new medications: Apixaban (Eliquis) 2.5 MG TABLET 2.5 Milligram ORAL TWICE DAILY Qty = 30 No Refills Comments: GIVEN 06/19/16 @ 1035 Copies To: ZIA ALCOCER,RICHARD Magallon; DUONG ALCOCER,YAMILE Keller Attending MD Review Statement Documenting Attending: TIMOTHY ALCOCER,REENA
== END 2016-06-19 13:05 | DRG 310 ==
LOC: ENRESERVTM → ENRESERVDT → ERH 05:05 → 1NO 06:56 → ENPENDDIS 06:56 → ERHI 06:56 → 1NO 09:19
PROVIDERS: Internal Medicine; Ophthalmology; Pediatrics; ADMIT Hospitalist
DX: I48.0 Paroxysmal atrial fibrillation (principal); E11.22 Type 2 diabetes mellitus with diabetic chronic kidney disease; D69.6 Thrombocytopenia, unspecified; I27.2 Other secondary pulmonary hypertension; N18.3 Chronic kidney disease, stage 3 (moderate); I08.3 Combined rheumatic disorders of mitral, aortic and tricuspid valves; E03.9 Hypothyroidism, unspecified; I12.9 Hypertensive chronic kidney disease with stage 1 through stage 4 chronic kidney disease, or unspecified chronic kidney disease; Z85.3 Personal history of malignant neoplasm of breast; E78.5 Hyperlipidemia, unspecified; E66.3 Overweight; Z68.32 Body mass index [BMI] 32.0-32.9, adult; G89.29 Other chronic pain; M54.9 Dorsalgia, unspecified; F43.21 Adjustment disorder with depressed mood; Z79.84 Long term (current) use of oral hypoglycemic drugs
CPT/HCPCS: 1NP; 82436; 93005; 93010; 93306; 96374; 96375; 96376; 99291; J0131; J1644

== ENCOUNTER 2017-07-23 14:17 | Inpatient (IN) | payer OTHER, BC, MEDICARE ==
[~2017-07-23] VITALS: Ht 160 cm; Wt 79.9 kg
[~2017-07-23 14:17] MED LIST: AMLODIPINE BES2.5 M1 PO; ASPIRIN81 M4 PO; ELIQUIS2.5 M1 PO; GLUCOTROL XL2.5 MG PO; LISINOPRIL20 M1 PO; PIOGLITAZONE HC30 M1 PO; TERAZOSIN HCL1 M1 PO; TRAMADOL HCL50 M1 PO
[2017-07-23 14:55] LABS: ABSOLUTE BASOPHIL COUNT 0 /CUMM (0.0-0.2); ABSOLUTE EOSINOPHIL COUNT 0.2 /CUMM (0.0-0.7); ABSOLUTE GRANULOCYTE CT 2.7 /CUMM (1.4-6.5); ABSOLUTE LYMPH COUNT 1.2 /CUMM (1.2-3.4); ABSOLUTE MONOCYTE COUNT 0.3 /CUMM (0.10-0.60); BASOPHIL % 0.5 % (0.0-2.0); EOSINOPHIL % 4.5 % (0-5); HEMATOCRIT 36.5 % (37-47); MEAN CORPUSCULAR HGB 30.2 PG (27.0-31.0); MEAN CORPUSCULAR VOLUME 88.9 FL (81.0-99.0); PLATELET COUNT 125 /CUMM (130-400); RBC DISTRIBUTION WIDTH 13.9 % (11.5-14.5); RED BLOOD CELL CT 4.11 /CUMM (4.20-5.40); WHITE BLOOD CELL COUNT 4.4 /CUMM (4.8-10.8)
[2017-07-23 14:57] LABS: GRANULOCYTE % 60.7 % (42.2-75.2)
[2017-07-23] MEDS ORDERED: FUROSEMIDE20 M1 PO (15:06)
--- NOTE | 2017-07-23 15:13 | ED CARDIAC/CP/PALPITATIONS ---
History of Present Illness General Chief Complaint: Chest Pain Stated Complaint: CP, X 3 DAYS Source: patient, old records Exam Limitations: no limitations Vital Signs & Intake/Output Vital Signs & Intake/Output Vital Signs Date Time Temp Pulse Resp B/P B/P Pulse O2 O2 Flow FiO2 Mean Ox Delivery Rate 07/23 1655 97.9 59 15 190/86 99 Room Air Room Air 07/23 1527 Room Air Room Air 07/23 1426 98.2 73 15 170/66 93 Room Air Room Air Allergies Coded Allergies: Sulfa (Sulfonamide Antibiotics) (UNKNOWN 07/23/17) oxycodone (UNKNOWN 07/23/17) pseudoephedrine (UNKNOWN 07/23/17) Reconcile Medications Amlodipine Besylate 2.5 MG TABLET 1 TAB PO DAILY HIGH BLOOD PRESSURE ( Reported) Apixaban (Eliquis) 2.5 MG TABLET 2.5 MG PO BID blood thinner (rhythm problem) Furosemide 20 MG TABLET 1 TAB PO DAILY WATER RETENTION (Reported) Glipizide (Glucotrol XL) 2.5 MG TAB.ER.24 1 TAB PO DAILY DIABETES (Reported) Lisinopril 20 MG TABLET 1 TAB PO BID HTN (Reported) Pioglitazone HCl 30 MG TABLET 1 TAB PO DAILY DIABETES (Reported) Terazosin HCl 1 MG CAPSULE 1 CAP PO QPM HEADACHE (Reported) Triage Note: PT TO ED FOR C/C OF MIDSTERNAL CHEST PAIN THAT RADIATES TO LUQ. INTERMITTENT AND SHARP. WHEN PAIN COMES ON, PAIN LASTS FOR APPROX 1 MINUTE. DENIES SOB. REPORTS SOME LEG SWELLING. Triage Nurses Notes Reviewed? yes HPI: Patient presents with chest pain. The pain started on Sunday. Patient describes it as a substernal pressure pain that then radiates around to her left side. The pain lasts approximately 1 minute and then goes away. When the pain was away patient then feels short of breath for "a few breaths." Patient denies any diaphoresis, nausea or vomiting. The pain is unrelated to activity. Patient states that it comes on sometimes with activity and sometimes just at rest. On Sunday she had 2 of these episodes, on Sunday she had multiple more episodes and today even more currently the symptoms are coming approximately every 20 minutes. Past History Travel History Traveled to [place] past 21 day No Medical History Any Pertinent Medical History? see below for history Neurological: NONE EENT: NONE Cardiovascular: AFIB, hypertension, hyperlipidemia Respiratory: NONE Gastrointestinal: NONE Hepatic: NONE Renal: NONE Musculoskeletal: chronic back pain Psychiatric: NONE Endocrine: diabetes Blood Disorders: NONE Cancer(s): NONE [employer]ED [employer]OR/Reproductive: history of breast cancer status post lumpectomy and chemotherapy History of MRSA: No History of VRE: No History of CDIFF: No Influenza Vaccine: 12/29/15 Surgical History Surgical History: appendectomy, cholecystectomy, hysterectomy Psychosocial History Who do you live with Son Services at Home None What is your primary language Belarusian Tobacco Use: Never used ETOH Use: denies use Illicit Drug Use: denies illicit drug use Family History Family History, If Any: BROTHER (Myocardial infarction at age 48). SISTER (Hemorrhagic stroke). MOTHER (Diabetes mellitus). FATHER (Gastric cancer). Hx Contributory? No Review of Systems Review of Systems Constitutional: Reports: no symptoms. EENTM: Reports: no symptoms. Respiratory: Reports: see HPI, short of breath. Cardiovascular: Reports: see HPI, chest pain. GI: Reports: no symptoms. Genitourinary: Reports: no symptoms. Musculoskeletal: Reports: no symptoms. Skin: Reports: no symptoms. Neurological/Psychological: Reports: no symptoms. Hematologic/Endocrine: Reports: no symptoms. Immunologic/Allergic: Reports: no symptoms. All Other Systems: Reviewed and Negative Physical Exam Physical Exam General Appearance: well developed/nourished, alert, awake Head: atraumatic, normal appearance Eyes: Bilateral: PERRL, EOMI. Ears, Nose, Throat: normal pharynx, normal ENT inspection, hearing grossly normal Neck: normal inspection, supple, full range of motion Respiratory: normal breath sounds, chest non-tender, no respiratory distress, lungs clear Cardiovascular: regular rate/rhythm, normal peripheral pulses Gastrointestinal: normal bowel sounds, soft, non-tender Back: normal inspection, normal range of motion Extremities: normal inspection, normal capillary refill, normal range of motion, no edema Neurologic/Psych: no motor/sensory deficits, awake, alert, oriented x 3, normal mood/affect Skin: intact, normal color, warm/dry Core Measures ACS in differential dx? Yes CVA/TIA Diagnosis No Sepsis Present: No Sepsis Focused Exam Completed? No Progress Differential Diagnosis: AMI, cholecystitis, myocarditis, pericarditis, pneumonia , pneumothorax Plan of Care: Orders Procedure Date/time Status Heart Healthy Diet 05/15 B Active Patient Data 07/23 7850 Active ED Holding Orders 07/23 173 Active Admit to inpatient 07/23 173 Active Vital Signs 07/23 173 Active Code Status 07/23 173 Active EKG 07/23 1628 Active TROPONIN LEVEL 07/23 1428 Complete PHOSPHORUS 07/23 1428 Complete MAGNESIUM 07/23 1428 Complete COMPREHENSIVE METABOLIC PANEL 07/23 1428 Complete CBC WITHOUT DIFFERENTIAL 07/23 1428 Complete EKG 07/23 1418 Active Current Medications Sig/Brina Start time Last Medication Dose Stop Time Status Admin Ketorolac 30 MG ONCE ONE 07/23 1730 UNVr Tromethamine 07/23 1731 (Toradol) Laboratory Tests 07/23/17 1442: Anion Gap 9, Estimated GFR 31 L, BUN/Creatinine Ratio 23.1, Glucose 107 H, Calcium 9.0, Phosphorus 4.1, Magnesium 2.0, Total Bilirubin 0.4, AST 17, ALT 15, Alkaline Phosphatase 102, Troponin I < 0.01, Total Protein 6.6, Albumin 4.0, Globulin 2.6, Albumin/Globulin Ratio 1.5, CBC w Diff NO MAN DIFF REQ, RBC 4.11 L, MCV 88.9, MCH 30.2, MCHC 34.0, RDW 13.9, MPV 9.0, Gran % 60.7, Lymphocytes % 28.2, Monocytes % 6.1, Eosinophils % 4.5, Basophils % 0.5, Absolute Granulocytes 2.7, Absolute Lymphocytes 1.2, Absolute Monocytes 0.3, Absolute Eosinophils 0.2, Absolute Basophils 0 Diagnostic Imaging: Viewed by Me: Radiology Read. Discussed w/RAD: Radiology Read. CXR Impression: PATIENT: AUBREE WHITE PRESENT AGE: 82 PATIENT ACCOUNT NO: [id number] : 35 LOCATION: [facility] ORDERING PHYSICIAN: Maria Alejandra GRAMAJO SERVICE DATE: 07/23/17 EXAM TYPE: RAD - XRY-CHEST XRAY, TWO VIEWS EXAMINATION: XR CHEST CLINICAL INFORMATION: Chest pain COMPARISON: 06/17/2016 TECHNIQUE: 2 views of the chest were obtained. FINDINGS: Surgical clips overlie the right hemithorax. The lungs are well expanded. There is no focal consolidation, edema, or effusion. No pneumothorax. The cardiomediastinal silhouette is within normal limits. No acute osseous abnormality. Mild degenerative changes of the spine. IMPRESSION: No acute pulmonary findings. DICTATED BY: Jef Jimenez MD DATE/TIME DICTATED:1514 DIRECTOR OF FLIGHT OPERATIONS:TYLER DATE/TIME TRANSCRIBED:07/23/171514 CONFIDENTIAL, DO NOT COPY WITHOUT APPROPRIATE AUTHORIZATION. <Electronically signed in Other Vendor System> SIGNED BY: Barbara ALCOCER,Jef 07/23/17 1522 Initial ED EKG: NSR, no ST T wave changes Prior EKG: unchanged Repeat EKG: unchanged Rhythm Strip: normal sinus rhythm Comments: Patient is now having pain in her left shoulder blade. This pain is constant. This pain is cramping in nature. She rates the pain at 6 out of 10. Patient states that the chest pain that she is getting is now coming every 20 minutes as well. Her repeat EKG is still normal. Case was discussed with Dr. Higuera who recommends admission to the hospital for further evaluation. Departure Departure Disposition: STILL A PATIENT Condition: Stable Clinical Impression Primary Impression: ACS (acute coronary syndrome) Referrals: Gilda ALCOCER,Ernie Keller (PCP/Family) Departure Forms: Customer Survey General Discharge Information Admission Note Spoke With: Edy Miguel MD Documentation of Exam: Documentation of any treatments & extenuating circumstances including Concerns Regarding Discharge (functional status, medication knowledge or non-compliance, living conditions, etc.) that warrant an admission rather than observation: [ Telemetry monitoring, serial enzymes, pain control, cardiology consultation. The patient will need further cardiac evaluation given her escalating chest pain.] Critical Care Note Critical Care Note Critical Care Time: non-applicable
--- NOTE | 2017-07-23 15:22 | RADIOLOGY REPORT ---
EXAMINATION: XR CHEST CLINICAL INFORMATION: Chest pain COMPARISON: 06/17/2016 TECHNIQUE: 2 views of the chest were obtained. FINDINGS: Surgical clips overlie the right hemithorax. The lungs are well expanded. There is no focal consolidation, edema, or effusion. No pneumothorax. The cardiomediastinal silhouette is within normal limits. No acute osseous abnormality. Mild degenerative changes of the spine. IMPRESSION: No acute pulmonary findings.
--- NOTE | 2017-07-23 17:40 | History & Physical ---
Inocente Bagley MD 07/23/17 3749: General Information and HPI MD Statement: I have seen and personally examined AUBREE WHITE and documented this H&P. The patient is a 82 year old F who presented with a patient stated chief complaint of chest pain. Source of Information: patient, old records Exam Limitations: no limitations History of Present Illness: 82 year old female with past medical history of HTN, HLD, pAfib, DM, CKD Stage IIIB/IV, right breast cancer s/p lumpectomy and lymph node dissection + chemotherapy without radiation presented with complaints of several days of intermittent left sided chest pain. Her chest pain first started three days ago. She says she noticed her pain first started after lifting a box to the top shelf at work on Sunday night. It was under the left breast and radiating towards the mid axillary line. She had two episodes that day that lasted less than one minute and were associated with very transient feeling of dyspnea without diaphoresis, nausea, or palpitations. These episodes resolved on their own. There was no clear aggravating or relieving factors, neither exertion, nor position. She does state that she gets lower extremity claudication symptoms after walking for more than 100 feet but denies any chest pain or dyspnea from exertion.The following day the patient had several more episodes that became more frequent but still transient and continued today and the patient decided to come in for evaluation. She drove herself to the emergency room. On arrival, the patient had was complaining of the same intermittent left chest pain now coming every twenty minutes, constant left scapular pain, cramping, 6/10 in severity, that improved with toradol administration. She also reports feeling extremely fatigued for the past week and normally works 30+ hours a week. She states her chest pain woke her up from sleep this morning. In the emergency department, her blood pressure was elevated to 190/86 with a negative troponin and no ischemic changes on initial EKG. She was given toradol 30mg and aspirin 325mg. After discussion with Dr. Higuera, the patient was admitted to telemetry for further management. Allergies/Medications Allergies: Coded Allergies: Sulfa (Sulfonamide Antibiotics) (UNKNOWN 07/23/17) oxycodone (UNKNOWN 07/23/17) pseudoephedrine (UNKNOWN 07/23/17) Home Med list Amlodipine Besylate 2.5 MG TABLET 1 TAB PO DAILY HIGH BLOOD PRESSURE ( Reported) Apixaban (Eliquis) 2.5 MG TABLET 2.5 MG PO BID blood thinner (rhythm problem) Furosemide 20 MG TABLET 1 TAB PO DAILY WATER RETENTION (Reported) Glipizide (Glucotrol XL) 2.5 MG TAB.ER.24 1 TAB PO DAILY DIABETES (Reported) Lisinopril 20 MG TABLET 1 TAB PO BID HTN (Reported) Pioglitazone HCl 30 MG TABLET 1 TAB PO DAILY DIABETES (Reported) Terazosin HCl 1 MG CAPSULE 1 CAP PO QPM HEADACHE (Reported) Compliance With Home Meds: GOOD Past History Travel History Traveled to [place] past 21 day No Medical History Neurological: NONE EENT: NONE Cardiovascular: AFIB, hypertension, hyperlipidemia Respiratory: NONE Gastrointestinal: NONE Hepatic: NONE Renal: NONE Musculoskeletal: chronic back pain Psychiatric: NONE Endocrine: diabetes Blood Disorders: NONE Cancer(s): NONE 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 SISTER (Hemorrhagic stroke). MOTHER (Diabetes mellitus). FATHER (Gastric cancer). Psychosocial History Services at Home: None ETOH Use: denies use Illicit Drug Use: denies illicit drug use Functional Ability ADLs Independent: dressing, eating, toileting, bathing. Ambulation: independent IADLs Independent: shopping, housework, finances, food prep, telephone, medication admin. Needs Assist: transportation. Review of Systems Review of Systems Constitutional: Reports: malaise. Denies: chills, diaphoresis, fever. EENTM: Reports: no symptoms. Cardiovascular: Reports: chest pain. Denies: edema, orthopena, palpitations, peripheral edema. Respiratory: Reports: short of breath. Denies: cough, orthopnea, sputum production, wheezing. GI: Denies: abdominal pain, diarrhea, nausea, vomiting. Genitourinary: Reports: no symptoms. Musculoskeletal: Reports: back pain. Skin: Reports: no symptoms. Neurological/Psychological: Reports: no symptoms. Hematologic/Endocrine: Reports: no symptoms. Immunologic/Allergic: Reports: no symptoms. All Other Systems: Reviewed and Negative Exam & Diagnostic Data Last 24 Hrs of Vital Signs/I&O Vital Signs Date Time Temp Pulse Resp B/P B/P Pulse O2 O2 Flow FiO2 Mean Ox Delivery Rate 07/23 1655 97.9 59 15 190/86 99 Room Air Room Air 07/23 1527 Room Air Room Air 07/23 1426 98.2 73 15 170/66 93 Room Air Room Air Intake & Output 07/23 1600 07/23 0800 07/23 0000 Intake Total 0 Output Total Balance 0 Intake, Oral 0 Patient 77.111 kg Weight Weight Reported by Patient Measurement Method Physical Exam General Appearance Alert, Oriented X3, Cooperative, No Acute Distress Neck Supple, No JVD Cardiovascular Regular Rate, Normal S1, Normal S2, No Murmurs Lungs crackles at left base Abdomen Normal Bowel Sounds, Soft, No Tenderness, No Masses Extremities No Clubbing, No Cyanosis, Normal Pulses, trace bilateral lower extremity edema Last 24 Hrs of Labs/Don: Laboratory Tests 07/23/17 1442: Anion Gap 9, Estimated GFR 31 L, BUN/Creatinine Ratio 23.1, Glucose 107 H, Calcium 9.0, Phosphorus 4.1, Magnesium 2.0, Total Bilirubin 0.4, AST 17, ALT 15, Alkaline Phosphatase 102, Troponin I < 0.01, Total Protein 6.6, Albumin 4.0, Globulin 2.6, Albumin/Globulin Ratio 1.5, CBC w Diff NO MAN DIFF REQ, RBC 4.11 L, MCV 88.9, MCH 30.2, MCHC 34.0, RDW 13.9, MPV 9.0, Gran % 60.7, Lymphocytes % 28.2, Monocytes % 6.1, Eosinophils % 4.5, Basophils % 0.5, Absolute Granulocytes 2.7, Absolute Lymphocytes 1.2, Absolute Monocytes 0.3, Absolute Eosinophils 0.2, Absolute Basophils 0 Diagnostic Data EKG Results sinus rhythm without ischemic changes CXR Results Surgical clips overlie the right hemithorax. The lungs are well expanded. There is no focal consolidation, edema, or effusion. No pneumothorax. The cardiomediastinal silhouette is within normal limits. No acute osseous abnormality. Mild degenerative changes of the spine. Other Results echo 06/2016 CONCLUSIONS Left ventricular cavity size at the upper limits of normal. Mild concentric left ventricular hypertrophy. No obvious regional wall motion abnormalities. Normal left ventricular ejection fraction visually estimated at 65%. Mildly increased left ventricular outflow tract velocity (1.5 m/s). "pseudonormal" filling pattern of the left ventricle for age (stage 2 diastolic dysfunction). Normal right ventricular size and function. Normal right atrial size. Mild left atrial dilatation. Mild mitral regurgitation. Mild aortic stenosis. Mild aortic regurgitation. Trace tricuspid regurgitation. No evidence of pulmonary hypertension. Mildly dilated inferior vena cava. Assessment/Plan Assessment: 82 year old female with past medical history of HTN, HLD, pAfib presented with complaints of several days of intermittent left sided chest pain. Chest pain: Could be musculoskeletal with history of lifting and respons to toradol Previously negative stress test and unremarkable echo, atypical cardiac chest pain Blood pressure was elevated to 190/86 on arrival, pain vs hypertension related chest pain Check skin for shingles rash with prodromal pain Denies any GI symptoms suggestive of GERD/GI related chest pain Check serial troponins to evaluate for myocardial ischemia Monitor on telemetry for arrhythmia, history of paroxysmal atrial fibrillation First troponin and EKG were negative for evidence of ischemia Multiple risk factors for CAD Start aspirin, statin, and continue lisinopril Beta chantal not started for IVCD with bradycardia in the past on diltiazem Can give sublingual nitro prn for chest pain Continue tylenol, lidoderm patch, and morphine for analgesia, avoid NSAIDs Check echocardiogram Cardiology consultation, Dr. Higuera Negative stress test in 2012 Echo 06/2016 CONCLUSIONS Left ventricular cavity size at the upper limits of normal. Mild concentric left ventricular hypertrophy. No obvious regional wall motion abnormalities. Normal left ventricular ejection fraction visually estimated at 65%. Mildly increased left ventricular outflow tract velocity (1.5 m/s). "pseudonormal" filling pattern of the left ventricle for age (stage 2 diastolic dysfunction). Normal right ventricular size and function. Normal right atrial size. Mild left atrial dilatation. Mild mitral regurgitation. Mild aortic stenosis. Mild aortic regurgitation. Trace tricuspid regurgitation. No evidence of pulmonary hypertension. Mildly dilated inferior vena cava. 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 ACS (acute coronary syndrome) 2. Diabetes mellitus type 2 3. CHRONIC RENAL FAILURE 4. Benign essential hypertension Core Measures/Misc (11/26) Acute Coronary Syndrome ACS Diagnosis: Yes Last Known EF % 65 No Beta-Chantal d/t Bradycardia Congestive Heart Failure Congestive Heart Failure Diagnosis No Cerebrovascular Accident CVA/TIA Diagnosis: No VTE (View Protocol) VTE Risk Factors Age>40 No Mechanical VTE Prophylaxis d/t N/A MechProphylax Ordered No VTE Pharm Prophylaxis d/t NA PharmProphylax ordered Sepsis (View protocol) Sepsis Present: No Jose EliasSusanne 07/23/17 1849: Resident Review Statement Resident Statement: examined this patient, discussed with dental internship, agreed with dental internship, discussed with family, reviewed EMR data (avail) Other Findings: This is a 82 year old female with past medical history of HTN, HLD, Paroxysmal Afib on apixaban,CKD Stage IIIB/IV, right breast cancer s/p lumpectomy and lymph node dissection +chemotherapy without radiation who presented with complaints of several days of intermittent left sided chest pain and occasional SOB. Per patient, she initially experienced left-sided chest pain after lifting a box on Sunday. Since then has been having occasional episodes of chest pain. She started to have pain behind her left shoulder when she presented to the hospital which improved after receiving IV Toradol. The patient denies having any CP, dyspnea at the time of our interview. The patient states that she ran out of her atorvastatin 2 weeks ago does not remember the dose. She does not remember the type of her allergy to oxycodone, states that she has received IV morphine in the past without any problem. Upon presentation to the ED, she was noted to have elevated pressure to 190/86. Please see above for more detail. Phy/Ex: NAD, AAOx3, HEENT: HNCAT, PERRLA, EOMI, NL pharynx Neck:Supple, no JVD, no carotid bruits CV:RRR, no murmur Lungs:CTABL Abd:NL BS, ND,NT Extremities : no edema, pulses normal and symmetrical. B/l Neurology: Nonfocal skin: No rash, no lesions Available labs and diagnostic data reviewed. Problems: #Chest pain; likely secondary to unstable angina versus musculoskeletal #Diabetes: #Atrial fibrillation #Hypertension, hyperlipidemia #Diabetes #CK D Plan: aspirin. Edy Miguel MD 07/23/17 0706: Attending MD Review Statement Attending Statement Attending MD Statement: examined this patient, discuss w/resident/PA/NIB INSPECTOR, agreed w/resident/PA/NIB INSPECTOR, discussed with family, reviewed EMR data (avail), reviewed images, amended to note Attending Assessment/Plan: The patient is an 82 yo female with h/o HTN, HL, PAF, DM2, CKD IIIB/IV, h/o right breast ca (surgery/chemo), who presented on the day of admission in the [place] ED with intermitted sharp fleeting left chest discomfort that began 07/20 and has become progressively worse. Pain is not related to exertion and radiated to left lateral chest and to thoracic spine. She has occasional dyspnea with this. No nausea/vomiting, diarrhea. Physical Exam: VS: T 98.2, P 73, R 5, BP 170/66, PO 99% RA HEENT: eyes- PERRLA, EOMI [place]- moist mucosa Neck: no adenopathy or bruits Chest: clear, except few crackles at left base Cor: RRR nl S1, S2 w/o murm, - HSM Abd: BS+, softly distended, non-tender Ext: trace bilat symmetric edema, w/o tenderness, pulses 1+ Neuro: alert & oriented x 3, non-focal exam, gait not tested Back: Mild tenderness left mid thoracic spine Derm: no rash in region of pain Labs/Tests- as above Impression/Plan: #Chest Pain- atypical for cardiac pain, however patient has risk factors. Most likely etiology is . No evidence of Zoster at present. Doubt GI. May be neuropathy/neuropathic pain. Plan: Admit to telemetry service- check serial troponin I levels, Cardiology Consult- Dr. Higuera. Tylenol, Morphine, Lidoderm Patch for pain at present. #Chronic Renal Failure- Cr 1.6 which is similar to prior. Plan: Will monitor renal function. #HTN- BP initially increased and came down. Plan: Monitor BP closely. Continue Lisinopril and Amlodipine. #h/o PAF- in sinus at present. Plan: Will monitor. #DM2- on oral agents and doing better. Plan: Continue DM education. Sliding scale insulin vs po meds.
[2017-07-23 19:45] VITALS: BP 142/76
--- NOTE | 2017-07-23 23:10 | Admission Certification ---
Admission Certification Certification Statement - As attending physician, I certify that at the time of - admission, based on clinical presentation, severity of - symptoms, need for further diagnostic testing and - therapeutic interventions, and risk of adverse outcomes - without in-hospital treatment, in my clinical assessment, - this patient requires an acute hospital stay for a minimum - of two nights or longer. I have also considered psychsocial - factors such as support system, advanced age, financial - issues, cognitive issues, and failed out-patient treatments, - past re-admission history, safety of patient, and lack of - compliance as applicable. Specific rationale supporting this admission is: The patient has h/o multiple risk factors for CAD (age, sex, HTN, HL, etc.) and comes in with elevated BP and needs close monitoring of BP and pulse. Cardiology consult with.
[2017-07-23 23:18] VITALS: BP 162/60
[2017-07-24 01:00] VITALS: BP 164/88
[2017-07-24 06:42] VITALS: BP 142/62
--- NOTE | 2017-07-24 06:59 | PN- Housestaff ---
See Addendum Subjective Follow-up For: chest pain Tele-Events Since Last Visit: sinus bradycardia HR 50s, no events Subjective: patient had some abdominal pain and bloating yesterday evening after eating a ham sandwich this morning she vomited once but now feels well, no complaints of chest pain mid scapular back pain persists 1/10 in severity, improved with analgesics Review of Systems Constitutional: Reports: see HPI. Objective Last 24 Hrs of Vital Signs/I&O Vital Signs Date Time Temp Pulse Resp B/P B/P Pulse O2 O2 Flow FiO2 Mean Ox Delivery Rate 07/24 0810 54 142/62 07/24 0810 54 142/62 07/24 0642 97.7 54 20 142/62 98 Room Air 07/24 0100 164/88 07/23 2318 97.9 56 20 162/60 99 Room Air 07/23 2130 68 142/60 07/23 2013 95 Room Air 07/23 1945 97.7 55 20 142/76 100 Room Air 07/23 1822 97.7 64 15 170/66 98 Room Air 07/23 1655 97.9 59 15 190/86 99 Room Air Room Air 07/23 1527 Room Air Room Air 07/23 1426 98.2 73 15 170/66 93 Room Air Room Air Intake & Output 07/24 1600 07/24 0800 07/24 0000 Intake Total 400 480 Output Total Balance 400 480 Intake, Oral 400 480 Patient 77.281 kg Weight Weight Reported by Patient Measurement Method Physical Exam General Appearance: Alert, Oriented X3, Cooperative, No Acute Distress Neck: Supple, No JVD Cardiovascular: Regular Rate, Normal S1, Normal S2, No Murmurs Lungs: Clear to Auscultation, Normal Air Movement Abdomen: Normal Bowel Sounds, Soft, No Tenderness, No Masses Extremities: No Clubbing, No Cyanosis, Normal Pulses, mild bilateral lower extremity edema Current Medications: Current Medications Sig/Brina Start time Last Medication Dose Route Stop Time Status Admin Acetaminophen 325 MG Q6P PRN 07/23 191 AC PO Amlodipine Besylate 2.5 MG DAILY 07/24 0900 AC 07/24 PO 0810 Apixaban 2.5 MG BID 07/23 2100 AC 07/24 PO 0821 Aspirin 81 MG DAILY 07/24 09 AC PO Aspirin 0 .STK-MED ONE 07/23 1802 DC PO Aspirin 325 MG ONCE ONE 07/23 1745 DC 07/23 PO 07/23 1746 1803 Atorvastatin Calcium 40 MG 1700 07/24 1700 AC PO Doxazosin Mesylate 1 MG DAILY 07/23 2215 AC 07/23 PO 2328 Insulin Aspart 0 TIDAC 07/24 0800 AC SC Ketorolac 0 .STK-MED ONE 07/23 1802 DC Tromethamine .ROUTE Ketorolac 30 MG ONCE ONE 07/23 1730 DC 07/23 Tromethamine IV 07/23 1731 1803 Lidocaine 1 PAT DAILY 07/23 1918 AC 07/24 EXT 0817 Lisinopril 20 MG BID 07/23 2100 AC 07/24 PO 0810 Metoprolol Tartrate 12.5 MG BID 07/23 2100 CAN PO Morphine Sulfate 1 MG Q4P PRN 07/23 1930 AC 07/24 IV 0044 Simethicone 80 MG ONCE ONE 07/24 0145 DC 07/24 PO 07/24 0146 0810 Last 24 Hrs of Lab/Don Results Last 24 Hrs of Labs/Mics: Laboratory Tests 07/24/17 0240: Troponin I < 0.01 07/23/17 2052: Troponin I < 0.01 07/23/17 1442: Anion Gap 9, Estimated GFR 31 L, BUN/Creatinine Ratio 23.1, Glucose 107 H, Calcium 9.0, Phosphorus 4.1, Magnesium 2.0, Total Bilirubin 0.4, AST 17, ALT 15, Alkaline Phosphatase 102, Troponin I < 0.01, Total Protein 6.6, Albumin 4.0, Globulin 2.6, Albumin/Globulin Ratio 1.5, CBC w Diff NO MAN DIFF REQ, RBC 4.11 L, MCV 88.9, MCH 30.2, MCHC 34.0, RDW 13.9, MPV 9.0, Gran % 60.7, Lymphocytes % 28.2, Monocytes % 6.1, Eosinophils % 4.5, Basophils % 0.5, Absolute Granulocytes 2.7, Absolute Lymphocytes 1.2, Absolute Monocytes 0.3, Absolute Eosinophils 0.2, Absolute Basophils 0 Assessment/Plan Assessment: 82 year old female with past medical history of HTN, HLD, pAfib presented with complaints of several days of intermittent left sided chest pain. Chest pain: Could be musculoskeletal with history of lifting and improvement with toradol Previously negative stress test and unremarkable echo, atypical cardiac chest pain Blood pressure was elevated to 190/86 on arrival Serial troponins and EKGs negative for myocardial ischemia No events on telemetry Continue aspirin, statin and lisinopril Beta uriel not started for IVCD with bradycardia in the past on diltiazem Can give sublingual nitro prn for chest pain Continue tylenol, lidoderm patch, and morphine for analgesia, avoid NSAIDs Check echocardiogram Cardiology consultation, Dr. Higuera Negative stress test in 2012 Echo 06/2016 CONCLUSIONS Left ventricular cavity size at the upper limits of normal. Mild concentric left ventricular hypertrophy. No obvious regional wall motion abnormalities. Normal left ventricular ejection fraction visually estimated at 65%. Mildly increased left ventricular outflow tract velocity (1.5 m/s). "pseudonormal" filling pattern of the left ventricle for age (stage 2 diastolic dysfunction). Normal right ventricular size and function. Normal right atrial size. Mild left atrial dilatation. Mild mitral regurgitation. Mild aortic stenosis. Mild aortic regurgitation. Trace tricuspid regurgitation. No evidence of pulmonary hypertension. Mildly dilated inferior vena cava. 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 Benign essential hypertension 2. Diabetes mellitus type 2 3. ACS (acute coronary syndrome) Pain Ratin Pain Location: back Pain Goal: Pain 4 or less Pain Plan: prn Tomorrow's Labs & Rationales: none
[2017-07-24 14:33] VITALS: BP 130/70
--- NOTE | 2017-07-24 18:09 | Cons- Cardiology ---
General Information and HPI Consulting Request Date of Consult: 07/24/17 Requested By: Yesenia Aceves MD Reason for Consult: Recurrent chest pain. Source of Information: patient, old records Exam Limitations: poor historian History of Present Illness: Mrs. Radha Fatima is an 82-year-old female with a history of diabetes mellitus, hypertension, chronic kidney disease, dyslipidemia, breast carcinoma ( s/p right lumpectomy and subsequent chemotherapy), previous chest pain syndrome with negative evaluations in the past, left ventricular hypertrophy, diastolic dysfunction, mildly increased left ventricular outflow tract velocity, intraventricular conduction delay, paroxysmal atrial fibrillation/flutter previously on propafenone/diltiazem that had to be stopped secondary to marked bradycardia who presented after experiencing recurrent episodes of chest pain. The discomfort started on 07/20/2017 at around 8:15 PM while she was at work after lifting a box and was felt in her lower sternal/epigastric region and radiated under her left breast. It was described as "sharp" and "severe" ("10/ 10") and lasted a "few minutes" before spontaneously subsiding. There was no change with position or respiration. She felt a little nauseated with the discomfort and after passed felt transiently short of breath. She had multiple similar, and increasingly frequent, episodes over the following several days and contacted our office 07/24/2017 after being awakened from sleep with another episode and was advised to go to the closest ED, but opted to come here. In the ED she began experiencing "constant", "cramping", but less intense ("6/10") left infrascapular discomfort that has persisted. Her last imaging stress test was performed on 05/15/2012 and revealed no evidence of reversible ischemia. Her last echocardiogram was performed on 06/18/2016 and revealed an upper normal limits for size left ventricle with mild concentric left ventricular hypertrophy , no regional wall motion abnormalities, and normal systolic function with an estimated ejection fraction of 65%, normal right ventricular size and function, normal right and mildly dilated left atrial size, age-related valvular changes, normal size aortic root, no pericardial effusion, and a mildly dilated inferior vena cava. The Doppler portion of the study revealed mild aortic stenosis, mild mitral, mild aortic, and trace tricuspid regurgitation, a mildly increased left ventricular outflow tract velocity (1.5 m/s), pseudo-normal left ventricular inflow pattern Allergies/Medications Allergies: Coded Allergies: Sulfa (Sulfonamide Antibiotics) (UNKNOWN 07/23/17) oxycodone (UNKNOWN 07/23/17) pseudoephedrine (UNKNOWN 07/23/17) Home Med List: Amlodipine Besylate 2.5 MG TABLET 1 TAB PO DAILY HIGH BLOOD PRESSURE ( Reported) Apixaban (Eliquis) 2.5 MG TABLET 2.5 MG PO BID blood thinner (rhythm problem) Furosemide 20 MG TABLET 1 TAB PO DAILY WATER RETENTION (Reported) Glipizide (Glucotrol XL) 2.5 MG TAB.ER.24 1 TAB PO DAILY DIABETES (Reported) Lisinopril 20 MG TABLET 1 TAB PO BID HTN (Reported) Pioglitazone HCl 30 MG TABLET 1 TAB PO DAILY DIABETES (Reported) Terazosin HCl 1 MG CAPSULE 1 CAP PO QPM HEADACHE (Reported) Review of Systems Review of Systems: A 14 point system review was obtained and was noncontributory, other than as above. 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 SISTER (Hemorrhagic stroke). MOTHER (Diabetes mellitus). FATHER (Gastric cancer). Psychosocial History Where Do You Live? Home Services at Home: None Smoking Status: Never Smoked ETOH Use: denies use Illicit Drug Use: denies illicit drug use Functional Ability ADLs Independent: dressing, eating, toileting, bathing. Ambulation: independent IADLs Independent: shopping, housework, finances, food prep, telephone, medication admin. Needs Assist: transportation. Exam & Diagnostic Data Vital Signs and I&O Vital Signs Date Time Temp Pulse Resp B/P B/P Pulse O2 O2 Flow FiO2 Mean Ox Delivery Rate 07/24 1433 98.1 57 20 130/70 96 Room Air 07/24 0810 54 14207/24 0810 54 07/24 0642 97.7 54 20 142/62 98 Room Air 07/24 0100 164/88 07/23 2318 97.9 56 20 162/60 99 Room Air 07/23 2130 68 142/60 07/23 2013 95 Room Air 07/23 1945 97.7 55 20 142/76 100 Room Air 07/23 1822 97.7 64 15 170/66 98 Room Air Intake & Output 07/24 1600 07/24 0800 07/24 0000 07/23 1600 07/23 0800 07/23 0000 Intake Total 725 400 480 0 Output Total Balance 725 400 480 0 Intake, Oral 725 400 480 0 Number 1 Bowel Movements Patient 170 lb 170 lb Weight Weight Reported by Patient Reported by Patient Measurement Method Physical Exam: Well-developed, overweight elderly female in no acute distress. Vital signs: See above. HEENT: Normocephalic, atraumatic, EOMI, moist mucous membranes. Neck: No JVD, no bruits. Lungs: Clear to auscultation bilaterally. Heart: S1, S2 with grade 1-2/6 systolic ejection murmur best heard in the base. PMI fifth ICS MCL. Abdomen: Soft, nontender, positive bowel sounds. Extremities: Trace bilateral lower extremity edema (right> left). Labs/Don Results: Laboratory Tests 07/24 07/23 07/23 0240 2052 1442 Chemistry Sodium (137 - 145 mmol/L) 143 Potassium (3.5 - 5.1 mmol/L) 4.4 Chloride (98 - 107 mmol/L) 107 Carbon Dioxide (22 - 30 mmol/L) 26 Anion Gap (5 - 16) 9 BUN (7 - 17 mg/dL) 37 H Creatinine (0.5 - 1.0 mg/dL) 1.6 H Estimated GFR (>60 ml/min) 31 L BUN/Creatinine Ratio (7 - 25 %) 23.1 Glucose (65 - 99 mg/dL) 107 H Calcium (8.4 - 10.2 mg/dL) 9.0 Phosphorus (2.5 - 4.5 mg/dL) 4.1 Magnesium (1.6 - 2.3 mg/dL) 2.0 Total Bilirubin (0.2 - 1.3 mg/dL) 0.4 AST (14 - 36 U/L) 17 ALT (9 - 52 U/L) 15 Alkaline Phosphatase (<127 U/L) 102 Troponin I (< 0.11 ng/ml) < 0.01 < 0.01 < 0.01 Total Protein (6.3 - 8.2 g/dL) 6.6 Albumin (3.5 - 5.0 g/dL) 4.0 Globulin (1.9 - 4.2 gm/dL) 2.6 Albumin/Globulin Ratio (1.1 - 2.2 %) 1.5 Hematology CBC w Diff NO MAN DIFF REQ WBC (4.8 - 10.8 /CUMM) 4.4 L RBC (4.20 - 5.40 /CUMM) 4.11 L Hgb (12.0 - 16.0 G/DL) 12.4 Hct (37 - 47 %) 36.5 L MCV (81.0 - 99.0 FL) 88.9 MCH (27.0 - 31.0 PG) 30.2 MCHC (33.0 - 37.0 G/DL) 34.0 RDW (11.5 - 14.5 %) 13.9 Plt Count (130 - 400 /CUMM) 125 L MPV (7.4 - 10.4 FL) 9.0 Gran % (42.2 - 75.2 %) 60.7 Lymphocytes % (20.5 - 51.1 %) 28.2 Monocytes % (1.7 - 9.3 %) 6.1 Eosinophils % (0 - 5 %) 4.5 Basophils % (0.0 - 2.0 %) 0.5 Absolute Granulocytes (1.4 - 6.5 /CUMM) 2.7 Absolute Lymphocytes (1.2 - 3.4 /CUMM) 1.2 Absolute Monocytes (0.10 - 0.60 /CUMM) 0.3 Absolute Eosinophils (0.0 - 0.7 /CUMM) 0.2 Absolute Basophils (0.0 - 0.2 /CUMM) 0 Diagnostic Data EKG Results 07/24/2017: Sinus rhythm and consider left ventricular hypertrophy. No significant change when compared to previous tracings. CXR Results 07/23/2017: No acute cardiopulmonary process. Assessment/Plan Assessment/Plan [id number] w/ hx DM, HTN, CKD, HLD, breast ca (s/p R lumpectomy & subsequent chemo), previous CP syndrome w/ negative evaluations, mild , LVH, DD, mildly increased LVOT velocity, IVCD, PAF/flutter who presented after experiencing recurrent episodes of chest pain. Given her risk equivalent and multiple risk factors for coronary artery disease admission was reasonable, although suspect the chest discomfort is noncardiac. Fortunately, she has ruled out for myocardial infarction by serial troponins and has had no acute electrocardiographic changes. Recommendations: * Continue on telemetry and follow-up troponin and ECG, given the fact that she is still having constant back pain. * Scheduled for nuclear treadmill stress test to exclude an ischemic basis for her presentation. * Continue her outpatient cardiac medications. * Check fasting lipid panel, free T4, TSH, glycosylated hemoglobin A1c. * Would hold off on IV heparin, but can reconsider this if further suspicious sounding chest discomfort occurs. * DVT prophylaxis. Further recommendations will follow, Thank you. Consult Acknowledgment - Thank you for your consult request.
[2017-07-24 23:12] VITALS: BP 138/84
[2017-07-25 06:24] VITALS: BP 146/74
--- NOTE | 2017-07-25 07:12 | PN- Housestaff ---
See Addendum Subjective Follow-up For: chest pain CKD HTN DM Tele-Events Since Last Visit: sinus bradycardia HR 40s Subjective: no complaints, no chest or back pain, no overnight events, NPO for stress test today Review of Systems Constitutional: Reports: see HPI. Objective Last 24 Hrs of Vital Signs/I&O Vital Signs Date Time Temp Pulse Resp B/P B/P Pulse O2 O2 Flow FiO2 Mean Ox Delivery Rate 07/26 623 97.9 57 12 146/74 97 Room Air 07/24 2312 98.0 54 18 138/84 98 07/24 2014 53 144/72 07/24 1433 98.1 57 20 130/70 96 Room Air Intake & Output 07/25 1600 07/25 0800 07/25 0000 Intake Total 100 Output Total Balance 100 Intake, Oral 100 Patient 79.379 kg Weight Weight Bed scale Measurement Method Physical Exam General Appearance: Alert, Oriented X3, Cooperative, No Acute Distress Cardiovascular: Regular Rate, Normal S1, Normal S2, No Murmurs Lungs: Clear to Auscultation, Normal Air Movement Abdomen: Normal Bowel Sounds, Soft, No Tenderness, No Masses Extremities: No Clubbing, No Cyanosis, Normal Pulses, mild b/l LE edema Current Medications: Current Medications Sig/Brina Start time Last Medication Dose Route Stop Time Status Admin Acetaminophen 1,000 MG Q6P PRN 07/24 1800 AC 07/24 N/A 1 UNIT IV 1823 Acetaminophen 325 MG Q6P PRN 07/23 191 AC PO Amlodipine Besylate 2.5 MG DAILY 07/24 0900 AC 07/24 PO 0810 Apixaban 2.5 MG 1030,2230 07/24 2230 AC 07/24 PO 2232 Apixaban 2.5 MG BID 07/23 2100 DC 07/24 PO 0821 Aspirin 81 MG DAILY 07/24 0900 AC PO Atorvastatin Calcium 40 MG 1700 07/24 1700 AC 07/24 PO 1752 Doxazosin Mesylate 1 MG DAILY 07/23 2215 AC 07/23 PO 2328 Insulin Aspart 0 TIDAC 07/24 0800 AC 07/24 SC 1231 Lidocaine 1 PAT DAILY 07/23 1918 AC 07/24 EXT 0817 Lisinopril 20 MG BID 07/23 2100 AC 07/24 PO 2014 Morphine Sulfate 1 MG Q4P PRN 07/23 1930 DC 07/24 IV 0044 Patient Medication 1 ED ONE ONE 07/24 1330 DC 07/24 Teaching ED 07/24 1331 1322 Tramadol HCl 50 MG .STK-MED ONE 07/24 1930 DC PO 07/24 1931 Tramadol HCl 25 MG Q12P PRN 07/24 1445 AC 07/24 PO 1450 Last 24 Hrs of Lab/Don Results Last 24 Hrs of Labs/Mics: Laboratory Tests 07/25/17 0635: Sodium Pending, Potassium Pending, Chloride Pending, Carbon Dioxide Pending, Anion Gap Pending, BUN Pending, Creatinine Pending, BUN/Creatinine Ratio Pending , Hemoglobin A1c Pending, Triglycerides Pending, Cholesterol Pending, LDL Cholesterol, Calc Pending, HDL Cholesterol Pending, Cholesterol/HDL Ratio Pending, TSH Pending, Free T4 Pending Assessment/Plan Assessment: 82 year old female with past medical history of HTN, HLD, pAfib presented with complaints of several days of intermittent left sided chest pain. Chest pain: Could be musculoskeletal with history of lifting and improvement with toradol Previously negative stress test and unremarkable echo, atypical cardiac chest pain Blood pressure was elevated to 190/86 on arrival, currently improved Serial troponins and EKGs negative for myocardial ischemia No events on telemetry Continue aspirin, statin and lisinopril Beta uriel not started for IVCD with bradycardia in the past on diltiazem Can give sublingual nitro prn for chest pain Continue tylenol, lidoderm patch, and morphine for analgesia, avoid NSAIDs Cardiology consultation, Dr. Higuera, recommended nuclear stress imaging today Negative stress test in 2012 Follow up TSH, lipid panel, BEP, and hemoglobin A1c Echo 06/2016 CONCLUSIONS Left ventricular cavity size at the upper limits of normal. Mild concentric left ventricular hypertrophy. No obvious regional wall motion abnormalities. Normal left ventricular ejection fraction visually estimated at 65%. Mildly increased left ventricular outflow tract velocity (1.5 m/s). "pseudonormal" filling pattern of the left ventricle for age (stage 2 diastolic dysfunction). Normal right ventricular size and function. Normal right atrial size. Mild left atrial dilatation. Mild mitral regurgitation. Mild aortic stenosis. Mild aortic regurgitation. Trace tricuspid regurgitation. No evidence of pulmonary hypertension. Mildly dilated inferior vena cava. HTN: Continue norvasc and lisinopril HLD: Start atorvastatin 40mg daily pAfib: Continue eliquis 2.5mg po bid No rate control for afib given history of IVCD with bradycardia on diltiazem in the past CKD stage IIIB/IV: Continue ACEi Check urine for protein Avoid nephrotoxins DM: Hold glipizide and pioglitazone Accuchecks TIDAC/HS, glucose well controlled with diet Sliding scale insulin coverage as needed with novolog NPO for nuclear stress test today DVT ppx-on eliquis Full code Problem List: 1. CHRONIC RENAL FAILURE 2. Diabetes mellitus type 2 3. Benign essential hypertension 4. Chest pain Pain Ratin Pain Location: n/a Pain Goal: Pain 4 or less Pain Plan: prn Tomorrow's Labs & Rationales: bep
[2017-07-25 14:20] VITALS: BP 150/64
--- NOTE | 2017-07-25 14:23 | PN- Cardiology ---
Subjective Subjective: No further chest pain. Underwent treadmill stress test earlier. No ECG evidence of ischemia. Nuclear images pending. Objective Vital Signs and I&Os Vital Signs Date Time Temp Pulse Resp B/P B/P Pulse O2 O2 Flow FiO2 Mean Ox Delivery Rate 07/25 1420 97.8 52 18 150/64 96 Room Air 07/25 1000 68 158/70 07/25 0958 68 158/70 07/25 0800 95 Room Air Room Air 07/25 0624 97.9 57 12 146/74 97 Room Air 07/24 2312 98.0 54 18 138/84 98 07/24 2014 53 144/72 07/24 1433 98.1 57 20 130/70 96 Room Air Intake & Output 07/25 1600 07/25 0800 07/25 0000 07/24 1600 07/24 0800 07/24 0000 Intake Total 100 725 400 480 Output Total Balance 100 725 400 480 Intake, Oral 100 725 400 480 Number 1 Bowel Movements Patient 175 lb 170 lb Weight Weight Bed scale Reported by Patient Measurement Method Physical Exam: Well-developed, overweight elderly female in no acute distress. Vital signs: See above. Neck: No JVD, no bruits. Lungs: Clear to auscultation bilaterally. Heart: S1, S2 with grade 1-2/6 systolic murmur. No gallop or rub appreciated. Abdomen: Soft, nontender, positive bowel sounds. Extremities: No edema. Current Medications: Current Medications Sig/Brina Start time Last Medication Dose Route Stop Time Status Admin Acetaminophen 1,000 MG Q6P PRN 07/24 1800 AC 07/24 N/A 1 UNIT IV 1823 Acetaminophen 325 MG Q6P PRN 07/23 191 AC PO Amlodipine Besylate 2.5 MG DAILY 07/24 0900 AC 07/25 PO 1000 Apixaban 2.5 MG 1030,2230 07/24 2230 AC 07/25 PO 0956 Aspirin 81 MG DAILY 07/24 0900 AC 07/25 PO 0946 Atorvastatin Calcium 40 MG 1700 07/24 1700 AC 07/24 PO 1752 Doxazosin Mesylate 1 MG DAILY 07/23 2215 AC 07/25 PO 0947 Insulin Aspart 0 TIDAC 07/24 0800 AC 07/24 SC 1231 Lidocaine 1 PAT DAILY 07/23 1918 AC 07/25 EXT 0956 Lisinopril 20 MG BID 07/23 2100 AC 07/25 PO 0958 Morphine Sulfate 1 MG Q4P PRN 07/23 1929 DC 07/24 IV 0044 Tramadol HCl 50 MG .STK-MED ONE 07/24 1929 DC PO 07/24 1930 Tramadol HCl 25 MG Q12P PRN 07/24 1445 AC 07/24 PO 1450 Results Last 48 Hrs of Labs/Mics: Laboratory Tests 07/25/17 0635: Anion Gap 7, Estimated GFR 33 L, BUN/Creatinine Ratio 24.7, Hemoglobin A1c 6.0 H, Triglycerides 114, Cholesterol 227 H, LDL Cholesterol, Calc 162 H, HDL Cholesterol 43, Cholesterol/HDL Ratio 5 H, TSH 2.910, Free T4 0.96 07/24/17 0240: Troponin I < 0.01 07/23/172051: Troponin I < 0.01 07/23/171441: Anion Gap 9, Estimated GFR 31 L, BUN/Creatinine Ratio 23.1, Glucose 107 H, Calcium 9.0, Phosphorus 4.1, Magnesium 2.0, Total Bilirubin 0.4, AST 17, ALT 15, Alkaline Phosphatase 102, Troponin I < 0.01, Total Protein 6.6, Albumin 4.0, Globulin 2.6, Albumin/Globulin Ratio 1.5, CBC w Diff NO MAN DIFF REQ, RBC 4.11 L, MCV 88.9, MCH 30.2, MCHC 34.0, RDW 13.9, MPV 9.0, Gran % 60.7, Lymphocytes % 28.2, Monocytes % 6.1, Eosinophils % 4.5, Basophils % 0.5, Absolute Granulocytes 2.7, Absolute Lymphocytes 1.2, Absolute Monocytes 0.3, Absolute Eosinophils 0.2, Absolute Basophils 0 Assessment/Plan Assessment/Plan 82-y-o-w-f w/ hx DM, HTN, CKD, HLD, breast ca (s/p R lumpectomy & subsequent chemo), previous CP syndrome w/ negative evaluations, mild , LVH, DD, mildly increased LVOT velocity, IVCD, PAF/flutter who presented after experiencing recurrent episodes of chest pain. Given her risk equivalent and multiple risk factors for coronary artery disease admission was reasonable, although suspect the chest discomfort is noncardiac. Fortunately, she has ruled out for myocardial infarction by serial troponins and has had no acute electrocardiographic changes. Awaiting results of nuclear imaging. We will plan for discharge if no evidence of ischemia. Continue telemetry? Yes
--- NOTE | 2017-07-25 17:10 | NUCLEAR MEDICINE REPORT ---
EXERCISE STRESS AND RESTING SPECT MYOCARDIAL PERFUSION IMAGING STUDY WITH GATED SPECT IMAGES: CLINICAL INDICATION: Chest pain. PROCEDURE: Regional myocardial perfusion was assessed using a 1 day protocol. Stress images were obtained on 07/25/2017 following the intravenous administration of 20.7 mCi Tc 99m Myoview. Stress was performed using the standard Prince protocol, with the patient reaching a peak heart rate of 129 bpm which is 93% maximal predicted heart rate of 138 bpm. Rest images were obtained 07/25/2017 following the intravenous administration of 30.7 mCi Technetium 99m Myoview. Single photon emission tomographic (SPECT) images were obtained. SPECT images were acquired in a 64 x 64 matrix of 64 projections over 180 degrees. These were reconstructed into standard short axis, horizontal and vertical long axis cardiac projections. FINDINGS: The post stress images demonstrate the left ventricular chamber to be normal in size. There is homogeneous distribution of activity in the left ventricular myocardium with no regions of abnormally decreased activity noted. The resting images also demonstrate homogeneous distribution of activity in the left ventricular myocardium, and are not significantly changed from the post stress images. The stress images were obtained using a gated SPECT technique, which permits visualization of wall motion and calculation of the left ventricular ejection fraction. No left ventricular wall motion abnormalities are noted on the stress study. The calculated left ventricular ejection fraction is 68% on the stress study. Compared to the previous study dated 05/15/2012, there has not been a significant change in perfusion. The gated images from the previous study are not available for review and the wall motion cannot be compared. Ejection fraction on the previous study with 71%, not significantly different from the current study. IMPRESSION: Normal exercise stress and resting myocardial perfusion study with normal left ventricular wall motion and ejection fraction.
[2017-07-25 22:18] VITALS: BP 152/72
[2017-07-26 06:40] VITALS: BP 140/60
--- NOTE | 2017-07-26 07:26 | PN- Housestaff ---
See Addendum Subjective Follow-up For: chest pain CKD HTN DM Tele-Events Since Last Visit: sinus rhythm/sinus bradycardia HR 50s-60s, no events Subjective: mid scapular back pain 03/21, ambulating, no more chest pain no overnight events test stress test was negative yesterday Review of Systems Constitutional: Reports: see HPI. Objective Last 24 Hrs of Vital Signs/I&O Vital Signs Date Time Temp Pulse Resp B/P B/P Pulse O2 O2 Flow FiO2 Mean Ox Delivery Rate 07/26 0640 98.0 54 20 140/60 95 Room Air 07/25 2218 98.1 57 18 152/72 95 Room Air 07/25 2118 58 152/72 07/25 1420 97.8 52 18 150/64 96 Room Air 07/25 1000 68 158/70 07/25 0958 68 158/70 07/25 0800 95 Room Air Room Air Intake & Output 07/26 0800 07/26 0000 07/25 1600 Intake Total 280 240 350 Output Total Balance 280 240 350 Intake, Oral 280 240 350 Patient 79.917 kg Weight Weight Bed scale Measurement Method Physical Exam General Appearance: Alert, Oriented X3, Cooperative, No Acute Distress Cardiovascular: Regular Rate, Normal S1, Normal S2, No Murmurs Lungs: Clear to Auscultation, Normal Air Movement Abdomen: Normal Bowel Sounds, Soft, No Tenderness, No Masses Extremities: No Clubbing, No Cyanosis, No Edema, Normal Pulses Current Medications: Current Medications Sig/Brina Start time Last Medication Dose Route Stop Time Status Admin Acetaminophen 1,000 MG Q6P PRN 07/24 1800 AC 07/25 N/A 1 UNIT IV 2343 Acetaminophen 325 MG Q6P PRN 07/23 191 AC PO Amlodipine Besylate 2.5 MG DAILY 07/24 09 AC 07/25 PO 1000 Apixaban 2.5 MG 1030,2230 07/24 2230 AC 07/25 PO 2239 Aspirin 81 MG DAILY 07/24 09 AC 07/25 PO 0946 Atorvastatin Calcium 40 MG 1700 07/24 1700 AC 07/25 PO 1633 Doxazosin Mesylate 1 MG DAILY 07/23 2215 AC 07/25 PO 0947 Insulin Aspart 0 TIDAC 07/24 0800 AC 07/24 SC 1231 Lidocaine 1 PAT DAILY 07/23 1917 AC 07/25 EXT 0956 Lisinopril 20 MG BID 07/23 2100 AC 07/25 PO 2118 Tramadol HCl 25 MG Q12P PRN 07/24 1445 AC 07/25 PO 1633 Last 24 Hrs of Lab/Don Results Last 24 Hrs of Labs/Mics: Laboratory Tests 07/26/17 0630: Sodium Pending, Potassium Pending, Chloride Pending, Carbon Dioxide Pending, Anion Gap Pending, BUN Pending, Creatinine Pending, BUN/Creatinine Ratio Pending , Magnesium Pending, CBC w Diff Pending, WBC Pending, RBC Pending, Hgb Pending, Hct Pending, MCV Pending, MCH Pending, MCHC Pending, RDW Pending, Plt Count Pending, MPV Pending Assessment/Plan Assessment: 82 year old female with past medical history of HTN, HLD, pAfib presented with complaints of several days of intermittent left sided chest pain. 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 Higuera Negative stress test in 2012 Stress test 07/25/2017 The calculated left ventricular ejection fraction is 68% on the stress study. Compared to the previous study dated 05/15/2012, there has not been a significant change in perfusion. The gated images from the previous study are not available for review and the wall motion cannot be compared. Ejection fraction on the previous study with 71%, not significantly different from the current study. IMPRESSION: Normal exercise stress and resting myocardial perfusion study with normal left ventricular wall motion and ejection fraction. Echo 06/2016 CONCLUSIONS Left ventricular cavity size at the upper limits of normal. Mild concentric left ventricular hypertrophy. No obvious regional wall motion abnormalities. Normal left ventricular ejection fraction visually estimated at 65%. Mildly increased left ventricular outflow tract velocity (1.5 m/s). "pseudonormal" filling pattern of the left ventricle for age (stage 2 diastolic dysfunction). Normal right ventricular size and function. Normal right atrial size. Mild left atrial dilatation. Mild mitral regurgitation. Mild aortic stenosis. Mild aortic regurgitation. Trace tricuspid regurgitation. No evidence of pulmonary hypertension. Mildly dilated inferior vena cava. 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 Chest pain 2. ACS (acute coronary syndrome) 3. Benign essential hypertension Pain Ratin Pain Location: mid back Pain Goal: Pain 4 or less Pain Plan: prn Tomorrow's Labs & Rationales: none discharge
--- NOTE | 2017-07-26 07:34 | Patient Discharge Instructions ---
Discharge Instructions General Discharge Information You were seen/treated for: Chest and back pain Special Instructions: You had negative troponins and a negative stress test. You most likely have back pain from musculoskeletal strain but unfortunately have to avoid NSAIDs for pain relief because of kidney disease. You can take Tylenol for pain relief and should avoid lifting. Please follow up with your primary care physician and photocomposing machine operator, Dr. Higuera. Acute Coronary Syndrome Inclusion Criteria At DC or during hospital stay patient has or had the following: ACS DIAGNOSIS No Discharge Core Measures Meds if any: Prescribed or Continued at Discharge Meds if any: NOT Prescribed or Continued at Discharge Congestive Heart Failure Inclusion Criteria At DC or during hospital stay patient has or had the following: CHF DIAGNOSIS No Discharge Core Measures Meds if any: Prescribed or Continued at Discharge Meds if any: NOT Prescribed or Continued at Discharge Cerebrovascular accident Inclusion Criteria At DC or during hospital stay patient has or had the following: CVA/TIA Diagnosis No Discharge Core Measures Meds if any: Prescribed or Continued at Discharge Meds if any: NOT Prescribed or Continued at Discharge Venous thromboembolism Inclusion Criteria VTE Diagnosis No VTE Type NONE VTE Confirmed by (Test) NONE Discharge Core Measures - Per Current guidelines, there needs to be overlap - treatment for the first 5 days of Warfarin therapy. - If discharged on Warfarin prior to 5 days of - overlap therapy, the patient will need to be - assessed for post discharge needs including - *Post discharge parental anticoagulation - *Warfarin and/or parental anticoagulation education - *Follow up date to check INR post discharge At least 5 days overlap therapy as Inpatient No Meds if any: Prescribed or Continued at Discharge Note: Overlap Therapy is Warfarin and Anticoagulant Meds if any: NOT Prescribed or Continued at Discharge
--- NOTE | 2017-07-26 07:35 | Discharge Summary ---
Visit Information Visit Dates Admission Date: 07/23/17 Discharge Date: 07/26/17 Hospital Course Course Attending Physician: Yesenia Aceves MD Primary Care Physician: Ernie Vo MD Hospital Course: 82 year old female with past medical history of HTN, HLD, CKD stage IIIB, DM, h /o breast cancer s/p lumpectomy and chemotherapy, mild aortic stenosis, left ventricular hypertrophy, and paroxysmal atrial fibrillation presented with complaints of several days of intermittent left sided chest pain. Her chest pain was left sided and becoming increasingly frequent, although not exertional in nature. This atypical chest pain was concerning for unstable angina so she was admitted to telemetry. She also complained of midscapular back pain that began after lifting luggage onto a high shelf at work, which improved with tylenol, toradol, and lidocaine patches. Her last echocardiogram was performed on 06/18/2016 and revealed an upper normal limits for size left ventricle with mild concentric left ventricular hypertrophy, no regional wall motion abnormalities, and normal systolic function with an estimated ejection fraction of 65%, normal right ventricular size and function, normal right and mildly dilated left atrial size, age-related valvular changes, normal size aortic root, no pericardial effusion, and a mildly dilated inferior vena cava. The Doppler portion of the study revealed mild aortic stenosis, mild mitral, mild aortic, and trace tricuspid regurgitation, a mildly increased left ventricular outflow tract velocity (1.5 m/s), pseudo-normal left ventricular inflow pattern. Her last imaging stress test was performed on 05/15 and revealed no evidence of reversible ischemia. She was admitted to telemetry and ruled out with negative serial troponins and no ischemic EKG changes. Given her multiple risk factors for coronary artery disease, a nuclear stress test was performed. Her exercise stress and resting myocardial perfusion study showed normal left ventricular wall motion and ejection fraction, negative for ischemia, calculated LVEF 68%, without significant change in perfusion compared to the previous study dated 05/15/2012. Her home medications were continued. Beta blockers were not given because of a history of IVCD and bradycardia previoulsy when given diltiazem. Aspirin was administered but not continued on discharge because of a history of epistaxis and she is already on Eliquis for paroxysmal atrial fibrillation. Her back and chest pain were likely musculoskeletal strain, but unfortunately she should avoid NSAIDs for pain relief because of chronic kidney disease. She was instructed to take Tylenol for pain relief and to avoid lifting. She was instructed to follow up with her primary care physician, Dr. Vo, and supply chain manager, Dr. Higuera. Allergies: Coded Allergies: Sulfa (Sulfonamide Antibiotics) (UNKNOWN 07/23/17) oxycodone (UNKNOWN 07/23/17) pseudoephedrine (UNKNOWN 07/23/17) Significant Procedures: Nuclear stress test 07/25/17 FINDINGS: The post stress images demonstrate the left ventricular chamber to be normal in size. There is homogeneous distribution of activity in the left ventricular myocardium with no regions of abnormally decreased activity noted. The resting images also demonstrate homogeneous distribution of activity in the left ventricular myocardium, and are not significantly changed from the post stress images. The stress images were obtained using a gated SPECT technique, which permits visualization of wall motion and calculation of the left ventricular ejection fraction. No left ventricular wall motion abnormalities are noted on the stress study. The calculated left ventricular ejection fraction is 68% on the stress study. Compared to the previous study dated 05/15/2012, there has not been a significant change in perfusion. The gated images from the previous study are not available for review and the wall motion cannot be compared. Ejection fraction on the previous study with 71%, not significantly different from the current study. IMPRESSION: Normal exercise stress and resting myocardial perfusion study with normal left ventricular wall motion and ejection fraction. Echo 06/2016 Echo 06/2016 CONCLUSIONS Left ventricular cavity size at the upper limits of normal. Mild concentric left ventricular hypertrophy. No obvious regional wall motion abnormalities. Normal left ventricular ejection fraction visually estimated at 65%. Mildly increased left ventricular outflow tract velocity (1.5 m/s). "pseudonormal" filling pattern of the left ventricle for age (stage 2 diastolic dysfunction). Normal right ventricular size and function. Normal right atrial size. Mild left atrial dilatation. Mild mitral regurgitation. Mild aortic stenosis. Mild aortic regurgitation. Trace tricuspid regurgitation. No evidence of pulmonary hypertension. Mildly dilated inferior vena cava. Disposition Summary Disposition Principal Diagnosis: Chest pain Back pain, musculoskeletal Diabetes mellitus Hypertension Additional Diagnosis: Hypertension Hyperlipidemia Diabetes mellitus Chronic kidney disease, Stage IIIB Paroxysmal atrial fibrillation Intraventricular conduction delay History of breast cancer, s/p right lumpectomy and chemotherapy Discharge Disposition: home or self care Discharge Instructions General Discharge Information Code Status: Full Code Patient's Diet: Diabetic diet with 2 gram sodium restriction Patient's Activity: As tolerated Follow-Up Instructions/Appts: Please follow up with your primary care physician and supply chain manager after discharge. Medications at Discharge Discharge Medications: Continue taking these medications: Lisinopril (Lisinopril) 20 MG TABLET 1 Tablet ORAL TWICE DAILY Qty = 60 Comments: Last Taken: 07/26/17 Time: 9:17 AM Terazosin HCl (Terazosin HCl) 1 MG CAPSULE 1 Capsule ORAL Every night Qty = 30 Comments: Last Taken: 07/26/17 Time: 9:17 AM [facility] Amlodipine Besylate (Amlodipine Besylate) 2.5 MG TABLET 1 Tablet ORAL DAILY Qty = 30 Comments: Last Taken: 07/26/17 Time: 9:17 AM Pioglitazone HCl (Pioglitazone HCl) 30 MG TABLET 1 Tablet ORAL DAILY Qty = 30 Comments: NOT GIVEN Glipizide (Glucotrol XL) 2.5 MG TAB.ER.24 1 Tablet ORAL DAILY Comments: NOT GIVEN Apixaban (Eliquis) 2.5 MG TABLET 2.5 Milligram ORAL TWICE DAILY Qty = 30 Comments: Last Taken: 07/26/17 Time: 9:17 AM Furosemide (Furosemide) 20 MG TABLET 1 Tablet ORAL DAILY Comments: NOT GIVEN Rosuvastatin Calcium (Crestor) 20 MG TABLET 1 Tablet ORAL DAILY Comments: Last Taken: 07/25/17 Time: 4:30 PM [facility] Copies To: Ishan Higuera MD; Ernie Vo MD, MD Review Statement Documenting Attending: Yesenia Aceves MD Glipizide (Glucotrol XL) 2.5 MG TAB.ER.24 1 Tablet ORAL DAILY Comments: NOT GIVEN Apixaban (Eliquis) 2.5 MG TABLET 2.5 Milligram ORAL TWICE DAILY Qty = 30 Comments: Last Taken: 07/26/17 Time: 9:17 AM Furosemide (Furosemide) 20 MG TABLET 1 Tablet ORAL DAILY Comments: NOT GIVEN Rosuvastatin Calcium (Crestor) 20 MG TABLET 1 Tablet ORAL DAILY Comments: Last Taken: 07/25/17 Time: 4:30 PM [facility] Copies To: Ishan Higuera MD; Ernie Vo MD, MD Review Statement Documenting Attending: Yesenia Aceves MD
[2017-07-26 08:20] LABS: ABSOLUTE BASOPHIL COUNT 0 /CUMM (0.0-0.2); ABSOLUTE EOSINOPHIL COUNT 0.3 /CUMM (0.0-0.7); ABSOLUTE GRANULOCYTE CT 1.6 /CUMM (1.4-6.5); ABSOLUTE LYMPH COUNT 1.4 /CUMM (1.2-3.4); ABSOLUTE MONOCYTE COUNT 0.2 /CUMM (0.10-0.60); BASOPHIL % 0.7 % (0.0-2.0); EOSINOPHIL % 8.3 % (0-5); GRANULOCYTE % 45.3 % (42.2-75.2); HEMATOCRIT 35.1 % (37-47); MEAN CORPUSCULAR HGB 29.6 PG (27.0-31.0); MEAN CORPUSCULAR HGB CONC 32.9 G/DL (33.0-37.0); PLATELET COUNT 101 /CUMM (130-400); WHITE BLOOD CELL COUNT 3.5 /CUMM (4.8-10.8)
[2017-07-26] MEDS ORDERED: ASPIRIN EC81 M1 PO (08:46)
[2017-07-26] MEDS ORDERED: CRESTOR20 M2 PO (08:47)
[2017-07-26 09:17] VITALS: BP 140/60
== END 2017-07-26 12:40 | DRG 563 ==
LOC: ERH 14:17 → ERHI 17:30 → 1NO 17:30 → ENRESERV 18:14 → ENTRNSPT 18:54 → EDTRNSPTSTS 19:04 → 1NO 19:19 → CMPTRNSPT 19:22 → 1NO 07-24 08:48 → ENPENDDIS 07-26 08:45 → ENTRNSPT 07-26 12:26 → EDTRNSPTSTS 07-26 12:38 → 1NO 07-26 12:40 → CMPTRNSPT 07-26 12:56
PROVIDERS: Physician Assistant; Preventive Medicine Public Health & General Preventive Medicine
DX: S29.011A Strain of muscle and tendon of front wall of thorax, initial encounter (principal); N18.4 Chronic kidney disease, stage 4 (severe); E11.22 Type 2 diabetes mellitus with diabetic chronic kidney disease; I45.89 Other specified conduction disorders; I48.0 Paroxysmal atrial fibrillation; S29.012A Strain of muscle and tendon of back wall of thorax, initial encounter; E78.5 Hyperlipidemia, unspecified; G89.29 Other chronic pain; M54.9 Dorsalgia, unspecified; X58.XXXA Exposure to other specified factors, initial encounter; Z79.84 Long term (current) use of oral hypoglycemic drugs; I12.9 Hypertensive chronic kidney disease with stage 1 through stage 4 chronic kidney disease, or unspecified chronic kidney disease; Z88.5 Allergy status to narcotic agent; Z85.3 Personal history of malignant neoplasm of breast; Z92.21 Personal history of antineoplastic chemotherapy; Z90.710 Acquired absence of both cervix and uterus; Z90.49 Acquired absence of other specified parts of digestive tract; Z88.2 Allergy status to sulfonamides; Z88.8 Allergy status to other drugs, medicaments and biological substances
CPT/HCPCS: 1NP; 36592; 71046; 78452; 82436; 93005; 93010; 93016; 93017; A9502; J0131; J1885; J3490